=== PATIENT | male | born 1970 | race Caucasian/White ===

== ENCOUNTER 2017-06-08 21:25 | Inpatient (IN) | payer MEDICAID, OTHER ==
[~2017-06-08] VITALS: Ht 182.9 cm; Wt 110.9 kg
[2017-06-08] MEDS ORDERED: SODIUM CHLORIDE 0.9% 2,000 ML IV ONE (21:32)
[2017-06-08] MEDS ORDERED: INSULIN REGULAR, HUMAN 100 UNITS/ML IVP ONE ×2 (21:45→22:30)
[2017-06-08 21:49] LABS: BASOPHILS % (AUTO) 0.1 % (0.0-2.0); EOSINOPHILS % (AUTO) 0.1 % (1.0-6.0); HEMATOCRIT 51.6 % (41-53); HEMOGLOBIN 13.8 g/dL (13.5-17.5); LYMPHOCYTES # (AUTO) 2.4 K/uL (1.0-4.8); LYMPHOCYTES % (AUTO) 11.2 % (22.0-44.0); MEAN CORPUSCULAR HEMOGLOBIN 26.1 pg (26.0-34.0); MEAN CORPUSCULAR HGB CONC 26.7 G/dL (31.0-37.0); MEAN CORPUSCULAR VOLUME 98 fL (80-100); MONOCYTES # (AUTO) 4.2 K/uL (0.1-1.0); MONOCYTES % (AUTO) 19.4 % (2.0-9.0); NEUTROPHILS # (AUTO) 15.1 K/uL (1.8-7.7); NEUTROPHILS % (AUTO) 69.2 % (40.0-70.0); PLATELET COUNT (AUTO) 390 K/uL (150-450); RED BLOOD CELL COUNT(AUTO) 5.28 MIL/uL (4.50-5.90); WHITE BLOOD COUNT (AUTO) 21.8 K/uL (4.5-11.0)
[2017-06-08 22:02] LABS: GLUCOSE,POINT OF CARE > 600 MG/DL (70-110)
[2017-06-08 22:11] LABS: SALICYLATE < 2.8 mg/dL (2.8-20.0)
[2017-06-08] MEDS ORDERED: SODIUM CHLORIDE 0.9% 1,000 ML IV ONE (22:15)
[2017-06-08 22:20] LABS: ALANINE AMINOTRANSFERASE 19 U/L (12-78); ALBUMIN 1.6 g/dL (3.4-5.0); ANION GAP 23 mmol/L (8-16); ASPARTATE AMINOTRANSFERASE 34 U/L (15-37); BILIRUBIN,TOTAL 0.4 mg/dL (0.1-1.0); CARBON DIOXIDE 10 mmol/L (22-29); CHLORIDE 71 mmol/L (98-107); GLOMERULAR FILTR. RATE CALC 25 mL/min (>60); TOTAL PROTEIN, SERUM 5.7 g/dL (6.4-8.2); UREA NITROGEN, BLOOD 41 mg/dL (7-18)
[2017-06-08 22:25] LABS: POTASSIUM 2.7 mmol/L (3.5-5.1); SODIUM SERUM 104 mmol/L (136-145)
[2017-06-08] MEDS ORDERED: SITA25 PO (22:26)
[2017-06-08] MEDS ORDERED: METF500T4 PO (22:26)
[2017-06-08 22:27] LABS: B-TYPE NATRIURETIC PEPTIDE 205 pg/mL (0-100)
[2017-06-08] MEDS ORDERED: DEXTROSE 5%-0.45% SODIUM CHL 1,000 ML IV PRN (22:30)
[2017-06-08] MEDS ORDERED: SODIUM CHLORIDE 0.45% 1,000 ML IV PRN (22:30)
[2017-06-08] MEDS ORDERED: MORPHINE SULFATE 2 MG/ML SYRINGE IVP PRN (22:30)
[2017-06-08] MEDS ORDERED: MAGNESIUM HYDROXIDE SUSPENSION 30 ML UDCUP PO PRN (22:30)
[2017-06-08] MEDS ORDERED: DEXTROSE 50%-WATER 25 GM/50 ML SYRINGE IVP PRN (22:30)
[2017-06-08] MEDS ORDERED: ZOLPIDEM TARTRATE 5 MG TABLET PO PRN (22:30)
[2017-06-08] MEDS ORDERED: ONDANSETRON HCL 4 MG/2 ML VIAL IVP PRN (22:30)
[2017-06-08] MEDS ORDERED: SODIUM CHLORIDE 0.9% 1,000 ML IV SCH (22:30)
[2017-06-08] MEDS ORDERED: POTASSIUM CHLORIDE 40 MEQ in SODIUM CHLORIDE 0.45% 1,000 ML IV PRN (22:30)
[2017-06-08] MEDS ORDERED: BISACODYL 10 MG RECTAL RECTAL SUPPOSITORY PR PRN (22:30)
[2017-06-08] MEDS ORDERED: POTASSIUM CHL 20 MEQ/0.45% NS 1,000 ML IV PRN (22:30)
[2017-06-08 22:38] LABS: RBC MORPHOLOGY COMMENT NORMAL RBC MORPH
[2017-06-08 22:43] LABS: ACETAMINOPHEN < 2 mcg/mL (10-30)
[2017-06-08 22:55] LABS: BASOPHILS # (AUTO) 0.03 K/uL (0.00-0.20); BASOPHILS % (AUTO) 0.2 % (0.0-2.0); EOSINOPHILS # (AUTO) 0.01 K/uL (0.00-0.70); EOSINOPHILS % (AUTO) 0.04 % (1.0-6.0); HEMATOCRIT 46.1 % (41-53); LYMPHOCYTES # (AUTO) 2.1 K/uL (1.0-4.8); MEAN CORPUSCULAR HEMOGLOBIN 25.8 pg (26.0-34.0); MEAN CORPUSCULAR HGB CONC 28.2 G/dL (31.0-37.0); MEAN CORPUSCULAR VOLUME 91 fL (80-100); MONOCYTES # (AUTO) 3.5 K/uL (0.1-1.0); MONOCYTES % (AUTO) 20.6 % (2.0-9.0); NEUTROPHILS # (AUTO) 11.5 K/uL (1.8-7.7); NEUTROPHILS % (AUTO) 67.2 % (40.0-70.0); PLATELET COUNT (AUTO) 358 K/uL (150-450); RED BLOOD CELL COUNT(AUTO) 5.05 MIL/uL (4.50-5.90); RED CELL DISTRIBUTION WIDTH 15.1 % (11.5-14.5); WHITE BLOOD COUNT (AUTO) 17.2 K/uL (4.5-11.0)
[2017-06-08] MEDS ORDERED: POTASSIUM CHLORIDE 40 MEQ in SODIUM CHLORIDE 0.9% 1,000 ML IV ONE (23:00)
[2017-06-08 23:07] LABS: ABG A-A DIFF O2 51.3 mmHg (10-20.0); ABG HCO3 10.8 mmol/L (22.0-26.0); ABG OXYHEMOGLOBIN 92.6 % (94.0-100.0); ABG PCO2 27 mmHg (35-45); TEMPERATURE, FAHRENHEIT, BG 93.6 FAHREN (96.0-98.6)
[2017-06-08 23:08] LABS: ALLEN TEST, BLOOD GAS POS
[2017-06-08 23:09] LABS: CALCIUM, TOTAL 7.6 mg/dL (8.8-10.5); CREATININE 2.71 mg/dL (0.60-1.30)
[2017-06-08] MEDS: INSULIN REGULAR, HUMAN 100 UNITS in SODIUM CHLORIDE 0.9% 99 ML IV PRN ×2 (23:10)
[2017-06-08] MEDS ORDERED: ALBUMIN HUMAN 25%-25GM/100ML 100 ML IV ONE (23:15)
[2017-06-08] MEDS ORDERED: SODIUM CHLORIDE 3% 500 ML IV ONE (23:15)
[2017-06-08] MEDS ORDERED: POTASSIUM CHLORIDE 10% 40 MEQ/30 ML LIQUID UDCUP PO ONE (23:45)
[2017-06-08 23:46] LABS: REFLEX LACTIC ACID? YES YES
[2017-06-08 23:52] LABS: APPEARANCE,URINE CLOUDY (CLEAR); GLUCOSE, URINE (UA) >=1000 mg/dL (NEGATIVE); KETONES,URINE NEGATIVE (NEGATIVE); LEUKOCYTE ESTERASE ,URINE NEGATIVE (NEGATIVE); OCCULT BLOOD,URINE MODERATE (NEGATIVE); PROTEIN,URINE NEGATIVE (NEGATIVE)
[2017-06-08 23:55] LABS: ADD UA MICROSCOPIC YES
[2017-06-09 00:11] LABS: PHOSPHORUS 1.6 mg/dL (2.5-4.9)
[2017-06-09 00:14] LABS: SQUAMOUS EPITHELIAL CELL,UR Rare /LPF (None Seen); WBC,URINE 0-2 /HPF (0-5)
[2017-06-09 00:15] LABS: AMORPHOUS SEDIMENT,UR Few /LPF (None Seen)
[2017-06-09] MEDS: HEPARIN SODIUM,PORCINE 5,000 UNITS/ML VIAL SQ SCH ×3 (00:53→15:46)
[2017-06-09 01:16] LABS: CALCIUM, TOTAL 7.9 mg/dL (8.8-10.5); CREATININE 2.55 mg/dL (0.60-1.30)
[2017-06-09 01:30] LABS: POTASSIUM 2.2 mmol/L (3.5-5.1)
[2017-06-09] MEDS ORDERED: POTASSIUM CHLORIDE 10% 40 MEQ/30 ML LIQUID UDCUP PO ONE (01:45)
[2017-06-09] MEDS ORDERED: POTASSIUM PHOS,M-BASIC-D-BASIC 20 MEQ in DEXTROSE 5%-WATER 100 ML IV ONE ×3 (01:45→05:30)
[2017-06-09] MEDS ORDERED: CALCIUM GLUCONATE 100 MG/ML 10 ML IVP ONE ×3 (01:45→22:30)
[2017-06-09] MEDS ORDERED: POTASSIUM CHLORIDE 40 MEQ in SODIUM CHLORIDE 0.9% 1,000 ML IV ONE (01:45)
[2017-06-09] MEDS ORDERED: CALCIUM GLUCONATE 0.465 MEQ/ML 10 ML VIAL IVP ONE (01:45)
[2017-06-09] MEDS ORDERED: SODIUM CHLORIDE 0.9% 50 ML ONE (02:09)
[2017-06-09] MEDS ORDERED: PIPERACILLIN/TAZO 3.375 GM/D5W 50 ML IV ONE (02:15)
[2017-06-09] MEDS ORDERED: VANCOMYCIN HCL 1 GM/D5% WATER 200 ML IV ONE ×2 (02:15→08:00)
[2017-06-09] MEDS ORDERED: SODIUM CHLORIDE 0.9% 500 ML IV ONE ×2 (03:17→07:00)
[2017-06-09 04:00] VITALS: BP 73/45
[2017-06-09] MEDS ORDERED: INSULIN REGULAR, HUMAN 100 UNITS/ML IVP ONE (04:00)
[2017-06-09] MEDS: INSULIN REGULAR, HUMAN 100 UNITS in SODIUM CHLORIDE 0.9% 99 ML IV PRN ×12 (04:00→16:10)
[2017-06-09] MEDS ORDERED: INSULIN REGULAR, HUMAN 100 UNITS/ML IVP PRN (04:15)
[2017-06-09 04:43] LABS: ALBUMIN 1.8 g/dL (3.4-5.0); BILIRUBIN,TOTAL 0.4 mg/dL (0.1-1.0); CREATININE 2.56 mg/dL (0.60-1.30); MAGNESIUM 2.4 mg/dL (1.80-2.40); PHOSPHORUS 1.6 mg/dL (2.5-4.9); TOTAL PROTEIN, SERUM 5.4 g/dL (6.4-8.2)
[2017-06-09 04:58] LABS: POTASSIUM 2.9 mmol/L (3.5-5.1)
[2017-06-09 05:12] LABS: GLUCOSE COMMENT 1 Received Meds; GLUCOSE,POINT OF CARE > 600 MG/DL (70-110)
[2017-06-09] MEDS ORDERED: POTASSIUM CHLORIDE 20 MEQ ER TABLET PO PRN ×2 (05:45)
[2017-06-09] MEDS ORDERED: POTASSIUM PHOS M BASIC D BASIC IV ONE ×3 (06:00→11:10)
[2017-06-09] MEDS ORDERED: WATER IV ONE (06:00)
[2017-06-09] MEDS ORDERED: DEXTROSE 5% IV ONE (06:00)
[2017-06-09] MEDS: INSULIN REGULAR, HUMAN 100 UNITS/ML IVP PRN ×7 (06:24→18:10)
[2017-06-09] MEDS ORDERED: HALOPERIDOL LACTATE 5 MG/ML VIAL IVP ONE (06:45)
[2017-06-09] MEDS ORDERED: SODIUM CHLORIDE 0.9% 1,000 ML IV ONE ×2 (06:45→13:45)
[2017-06-09] MEDS ORDERED: AMIODARONE HCL 150 MG in DEXTROSE 5%-WATER 97 ML IV ONE (06:50)
[2017-06-09 06:52] LABS: GLUCOSE COMMENT 1 Received Meds; GLUCOSE,POINT OF CARE > 600 MG/DL (70-110)
[2017-06-09 06:52] LABS: GLUCOSE COMMENT 1 Received Meds; GLUCOSE,POINT OF CARE > 600 MG/DL (70-110)
[2017-06-09] MEDS ORDERED: AMIODARONE HCL 360 MG in DEXTROSE 5%-WATER 242.8 ML IV ONE (07:00)
[2017-06-09] MEDS ORDERED: VANCOMYCIN HCL 1 GM/D5% WATER 200 ML IV PRN (07:15)
[2017-06-09 08:00] VITALS: BP 114/60
[2017-06-09] MEDS: DOCUSATE SODIUM 100 MG CAPSULE PO SCH ×2 (09:00→22:33)
[2017-06-09] MEDS: PANTOPRAZOLE SODIUM 40 MG DR TABLET PO SCH (09:00)
[2017-06-09] MEDS: POTASSIUM CHL 10 MEQ/WATER 50 ML IV PRN ×2 (09:22→10:16)
[2017-06-09 09:41] LABS: CREATININE 1.4 mg/dL (0.60-1.30); MAGNESIUM 1.2 mg/dL (1.80-2.40)
[2017-06-09 10:07] LABS: POTASSIUM 2.7 mmol/L (3.5-5.1)
[2017-06-09 10:08] LABS: PHOSPHORUS 1.4 mg/dL (2.5-4.9)
[2017-06-09] MEDS ORDERED: POTASSIUM PHOS,M-BASIC-D-BASIC 30 MEQ in DEXTROSE 5%-WATER 150 ML IV ONE (10:45)
[2017-06-09] MEDS ORDERED: MAGNESIUM SULFATE 3 GM in SODIUM CHLORIDE 0.9% 100 ML IV ONE (10:45)
[2017-06-09] MEDS ORDERED: SODIUM CHLORIDE 0.9% IV ONE ×2 (11:07→11:10)
[2017-06-09] MEDS ORDERED: PHENYLEPHRINE 200 MG/D5%-WATER 250 ML IV ONE (11:28)
[2017-06-09 11:32] LABS: ABG A-A DIFF O2 591.2 mmHg (10-20.0); ABG BASE EXCESS -16.2 mmol/L (-2.0-3.0); ABG OXYHEMOGLOBIN 94.9 % (94.0-100.0); ABG PCO2 37 mmHg (35-45); TEMPERATURE, FAHRENHEIT, BG 99.1 FAHREN (96.0-98.6)
[2017-06-09 11:33] LABS: ABG PH 7.151 (7.35-7.450); ALLEN TEST, BLOOD GAS Positive
[2017-06-09] MEDS ORDERED: RAPID SEQUENCE KIT [RSI] 1 EACH KIT ONE ×2 (11:40)
[2017-06-09] MEDS ORDERED: SODIUM BICARBONATE [ADULT] 8.4% 50 MEQ/50 ML SYRINGE IVP ONE ×3 (11:40→22:30)
[2017-06-09] MEDS ORDERED: SUCCINYLCHOLINE CHLORIDE 20 MG/ML 10 ML VIAL ONE (11:41)
[2017-06-09] MEDS ORDERED: ETOMIDATE 2 MG/ML 10 ML VIAL IVP ONE (11:45)
[2017-06-09] MEDS ORDERED: SUCCINYLCHOLINE CHLORIDE 20 MG/ML 10 ML VIAL IVP ONE (11:45)
[2017-06-09] MEDS: POTASSIUM CHL 10 MEQ/WATER 50 ML IV SCH ×3 (11:59→14:37)
[2017-06-09 12:00] VITALS: BP 82/34
[2017-06-09] MEDS ORDERED: AMIODARONE HCL 540 MG in DEXTROSE 5%-WATER 239.2 ML IV ONE (13:00)
[2017-06-09] MEDS ORDERED: DIGOXIN 250 MCG/ML 2 ML AMP IVP ONE (13:45)
[2017-06-09] MEDS: PIPERACILLIN/TAZO 3.375 GM/D5W 50 ML IV SCH ×3 (14:38→22:34)
[2017-06-09] MEDS: ACETAMINOPHEN 325 MG TABLET PO PRN (15:38)
[2017-06-09 16:00] VITALS: BP 98/37
[2017-06-09] MEDS: NOREPINEPHRINE 4 MG/D5%-WATER 250 ML IV PRN ×2 (16:41→22:36)
[2017-06-09 16:46] LABS: ANION GAP 13 mmol/L (8-16); CARBON DIOXIDE 12 mmol/L (22-29); CHLORIDE 113 mmol/L (98-107); CREATININE 1.42 mg/dL (0.60-1.30); GLOMERULAR FILTR. RATE CALC 54 mL/min (>60); PHOSPHORUS 2.7 mg/dL (2.5-4.9); POTASSIUM 4.7 mmol/L (3.5-5.1); SODIUM SERUM 138 mmol/L (136-145); UREA NITROGEN, BLOOD 31 mg/dL (7-18)
[2017-06-09 16:57] LABS: CALCIUM, TOTAL < 5.0 mg/dL (8.8-10.5)
[2017-06-09] MEDS ORDERED: ETOMIDATE 2 MG/ML 10 ML VIAL IV ONE (17:30)
[2017-06-09] MEDS ORDERED: SUCCINYLCHOLINE CHLORIDE 20 MG/ML 10 ML VIAL IM ONE (17:30)
[2017-06-09 18:42] LABS: GLUCOSE COMMENT 1 Received Meds; GLUCOSE,POINT OF CARE 547 MG/DL (70-110)
[2017-06-09 18:42] LABS: GLUCOSE COMMENT 1 Received Meds; GLUCOSE,POINT OF CARE > 600 MG/DL (70-110)
[2017-06-09 18:42] LABS: GLUCOSE COMMENT 1 Received Meds; GLUCOSE,POINT OF CARE > 600 MG/DL (70-110)
[2017-06-09 18:42] LABS: GLUCOSE COMMENT 1 Received Meds; GLUCOSE,POINT OF CARE > 600 MG/DL (70-110)
[2017-06-09 18:42] LABS: GLUCOSE,POINT OF CARE 546 MG/DL (70-110)
[2017-06-09 18:42] LABS: GLUCOSE COMMENT 1 Received Meds; GLUCOSE,POINT OF CARE > 600 MG/DL (70-110)
[2017-06-09 18:42] LABS: GLUCOSE,POINT OF CARE 459 MG/DL (70-110)
[2017-06-09 18:42] LABS: GLUCOSE,POINT OF CARE > 600 MG/DL (70-110)
[2017-06-09 20:00] VITALS: BP 99/37
[2017-06-09] MEDS: ALBUMIN HUMAN 25%-25GM/100ML 100 ML IV SCH (20:06)
[2017-06-09 20:07] LABS: ABG A-A DIFF O2 395.2 mmHg (10-20.0); ABG BASE EXCESS -17.7 mmol/L (-2.0-3.0); ABG HCO3 11.9 mmol/L (22.0-26.0); ABG OXYHEMOGLOBIN 98.7 % (94.0-100.0); ABG PCO2 42 mmHg (35-45)
[2017-06-09 20:08] LABS: ABG PH 7.079 (7.35-7.450)
[2017-06-09] MEDS: SODIUM CHLORIDE 0.9% 1,000 ML IV SCH ×2 (20:09→21:15)
[2017-06-09] MEDS: VANCOMYCIN HCL IV SCH (20:09)
[2017-06-09] MEDS: SODIUM CHLORIDE 0.9% IV SCH (20:09)
[2017-06-09 21:58] LABS: CALCIUM, TOTAL 8.1 mg/dL (8.8-10.5); CREATININE 2.59 mg/dL (0.60-1.30); MAGNESIUM 2.5 mg/dL (1.80-2.40); PHOSPHORUS 3.5 mg/dL (2.5-4.9)
[2017-06-09 22:00] LABS: POTASSIUM 8.1 mmol/L (3.5-5.1)
[2017-06-09] MEDS ORDERED: SODIUM POLYSTYRENE SULFONATE 15 GM/60 ML SUSPENSION BOTTLE PO ONE (22:30)
[2017-06-09] MEDS ORDERED: ALBUTEROL SULFATE 2.5 MG/0.5 ML NEB SOLUTION NEB ONE (22:30)
[2017-06-09] MEDS ORDERED: 0.9% SODIUM CHLORIDE 5 ML NEB SOLUTION NEB ONE (22:58)
[2017-06-09] MEDS: SODIUM BICARBONATE 150 MEQ in SODIUM CHLORIDE 0.45% 1,000 ML IV SCH (23:20)
[2017-06-09] MEDS: PROPOFOL 1000 MG/ISO-OSM 100 ML IV PRN (23:21)
[2017-06-10] VITALS: BP 101/67
[2017-06-10] MEDS: HEPARIN SODIUM,PORCINE 5,000 UNITS/ML VIAL SQ SCH ×4 (01:31→23:17)
[2017-06-10] MEDS: PHENYLEPHRINE 200 MG/D5%-WATER 250 ML IV PRN (01:32)
[2017-06-10 02:25] LABS: CALCIUM, TOTAL 7.8 mg/dL (8.8-10.5); CREATININE 2.55 mg/dL (0.60-1.30)
[2017-06-10] MEDS ORDERED: CALCIUM GLUCONATE 100 MG/ML 10 ML IVP ONE ×2 (02:30→08:00)
[2017-06-10] MEDS ORDERED: SODIUM POLYSTYRENE SULFONATE 15 GM/60 ML SUSPENSION BOTTLE PO ONE ×2 (02:30→08:00)
[2017-06-10] MEDS: ALBUMIN HUMAN 25%-25GM/100ML 100 ML IV SCH ×3 (02:36→18:07)
[2017-06-10 02:57] LABS: GLUCOSE COMMENT 1 Received Meds; GLUCOSE,POINT OF CARE 155 MG/DL (70-110)
[2017-06-10 02:57] LABS: GLUCOSE COMMENT 1 Received Meds; GLUCOSE,POINT OF CARE 314 MG/DL (70-110)
[2017-06-10 02:57] LABS: GLUCOSE COMMENT 1 Received Meds; GLUCOSE,POINT OF CARE 148 MG/DL (70-110)
[2017-06-10 02:57] LABS: GLUCOSE COMMENT 1 Received Meds; GLUCOSE,POINT OF CARE 182 MG/DL (70-110)
[2017-06-10 02:57] LABS: GLUCOSE COMMENT 1 Received Meds; GLUCOSE,POINT OF CARE 199 MG/DL (70-110)
[2017-06-10 02:57] LABS: GLUCOSE COMMENT 1 Received Meds; GLUCOSE,POINT OF CARE 259 MG/DL (70-110)
[2017-06-10 02:57] LABS: GLUCOSE COMMENT 1 Received Meds; GLUCOSE,POINT OF CARE 144 MG/DL (70-110)
[2017-06-10 02:57] LABS: GLUCOSE,POINT OF CARE 315 MG/DL (70-110)
[2017-06-10 02:57] LABS: GLUCOSE COMMENT 1 Received Meds; GLUCOSE,POINT OF CARE 115 MG/DL (70-110)
[2017-06-10 02:57] LABS: GLUCOSE COMMENT 1 Received Meds; GLUCOSE,POINT OF CARE 231 MG/DL (70-110)
[2017-06-10 02:57] LABS: GLUCOSE COMMENT 1 Received Meds; GLUCOSE,POINT OF CARE 150 MG/DL (70-110)
[2017-06-10] MEDS: PIPERACILLIN/TAZO 3.375 GM/D5W 50 ML IV SCH ×4 (03:51→21:34)
[2017-06-10] MEDS: NOREPINEPHRINE 4 MG/D5%-WATER 250 ML IV PRN (03:52)
[2017-06-10] MEDS: PROPOFOL 1000 MG/ISO-OSM 100 ML IV PRN ×7 (03:53→23:46)
[2017-06-10 04:00] VITALS: BP 105/60
[2017-06-10] MEDS: SODIUM BICARBONATE 150 MEQ in SODIUM CHLORIDE 0.45% 1,000 ML IV SCH ×3 (06:19→20:35)
[2017-06-10 06:22] LABS: BASOPHILS % (AUTO) 0.1 % (0.0-2.0); EOSINOPHILS % (AUTO) 0.3 % (1.0-6.0); HEMATOCRIT 33.2 % (41-53); HEMOGLOBIN 11.3 g/dL (13.5-17.5); LYMPHOCYTES # (AUTO) 2.6 K/uL (1.0-4.8); MEAN CORPUSCULAR HEMOGLOBIN 26.7 pg (26.0-34.0); MEAN CORPUSCULAR HGB CONC 34.1 G/dL (31.0-37.0); MEAN CORPUSCULAR VOLUME 78 fL (80-100); MONOCYTES # (AUTO) 0.2 K/uL (0.1-1.0); MONOCYTES % (AUTO) 0.6 % (2.0-9.0); NEUTROPHILS # (AUTO) 22.9 K/uL (1.8-7.7); PLATELET COUNT (AUTO) 246 K/uL (150-450); RED BLOOD CELL COUNT(AUTO) 4.25 MIL/uL (4.50-5.90); RED CELL DISTRIBUTION WIDTH 14.8 % (11.5-14.5); WHITE BLOOD COUNT (AUTO) 25.8 K/uL (4.5-11.0)
[2017-06-10 07:03] LABS: RBC MORPHOLOGY COMMENT NORMAL RBC MORPH
[2017-06-10 07:07] LABS: GLUCOSE COMMENT 1 Received Meds; GLUCOSE,POINT OF CARE 186 MG/DL (70-110)
[2017-06-10 07:07] LABS: GLUCOSE COMMENT 1 Received Meds; GLUCOSE,POINT OF CARE 178 MG/DL (70-110)
[2017-06-10 07:16] LABS: CALCIUM, TOTAL 7.9 mg/dL (8.8-10.5); CREATININE 2.46 mg/dL (0.60-1.30); MAGNESIUM 2.3 mg/dL (1.80-2.40); PHOSPHORUS 3.1 mg/dL (2.5-4.9)
[2017-06-10 07:27] LABS: POTASSIUM 6.1 mmol/L (3.5-5.1)
[2017-06-10 08:00] VITALS: BP 105/67
[2017-06-10] MEDS: AMIODARONE HCL 750 MG in DEXTROSE 5%-WATER 485 ML IV SCH (08:22)
[2017-06-10] MEDS ORDERED: INSULIN REGULAR, HUMAN 100 UNITS in SODIUM CHLORIDE 0.9% 99 ML IV SCH ×6 (08:45→09:44)
[2017-06-10] MEDS: VANCOMYCIN HCL IV SCH (08:49)
[2017-06-10] MEDS: PANTOPRAZOLE SODIUM 40 MG DR TABLET PO SCH (08:49)
[2017-06-10] MEDS: SODIUM CHLORIDE 0.9% IV SCH (08:49)
[2017-06-10] MEDS: DOCUSATE SODIUM 100 MG CAPSULE PO SCH ×2 (08:49→20:36)
[2017-06-10] MEDS: INSULIN REGULAR, HUMAN 100 UNITS in SODIUM CHLORIDE 0.9% 99 ML IV SCH ×4 (09:00→21:34)
[2017-06-10 11:41] LABS: CREATININE 2.34 mg/dL (0.60-1.30); MAGNESIUM 2.3 mg/dL (1.80-2.40); POTASSIUM 5.2 mmol/L (3.5-5.1)
[2017-06-10 12:00] VITALS: BP 111/54
[2017-06-10 15:06] LABS: CALCIUM, TOTAL 7.7 mg/dL (8.8-10.5); CREATININE 2.33 mg/dL (0.60-1.30); POTASSIUM 5.3 mmol/L (3.5-5.1)
[2017-06-10 16:00] VITALS: BP 94/62
[2017-06-10 16:42] LABS: PROCALCITONIN (PCT) 33.28 ng/mL (<0.50)
[2017-06-10] MEDS: ACETAMINOPHEN 325 MG TABLET PO PRN ×2 (17:20→21:33)
[2017-06-10 19:01] LABS: CALCIUM, TOTAL 7.7 mg/dL (8.8-10.5); CREATININE 2.33 mg/dL (0.60-1.30); POTASSIUM 5.5 mmol/L (3.5-5.1)
[2017-06-10 20:00] VITALS: BP 106/54
[2017-06-10 22:30] LABS: CALCIUM, TOTAL 7.4 mg/dL (8.8-10.5); CREATININE 2.45 mg/dL (0.60-1.30); POTASSIUM 5.4 mmol/L (3.5-5.1)
[2017-06-11] VITALS: BP 106/45
[2017-06-11] MEDS: PROPOFOL 1000 MG/ISO-OSM 100 ML IV PRN ×7 (02:45→23:05)
[2017-06-11 03:04] LABS: CALCIUM, TOTAL 7.2 mg/dL (8.8-10.5); CREATININE 2.35 mg/dL (0.60-1.30)
[2017-06-11] MEDS: ALBUMIN HUMAN 25%-25GM/100ML 100 ML IV SCH ×3 (03:11→18:52)
[2017-06-11] MEDS: PIPERACILLIN/TAZO 3.375 GM/D5W 50 ML IV SCH ×4 (03:11→20:52)
[2017-06-11 04:00] VITALS: BP 101/56
[2017-06-11] MEDS: SODIUM BICARBONATE 150 MEQ in SODIUM CHLORIDE 0.45% 1,000 ML IV SCH (05:02)
[2017-06-11 06:53] LABS: GLUCOSE COMMENT 1 Received Meds; GLUCOSE,POINT OF CARE 107 MG/DL (70-110)
[2017-06-11 06:53] LABS: GLUCOSE COMMENT 1 Received Meds; GLUCOSE,POINT OF CARE 122 MG/DL (70-110)
[2017-06-11 06:53] LABS: GLUCOSE COMMENT 1 Received Meds; GLUCOSE,POINT OF CARE 155 MG/DL (70-110)
[2017-06-11 06:53] LABS: GLUCOSE COMMENT 1 Received Meds; GLUCOSE,POINT OF CARE 121 MG/DL (70-110)
[2017-06-11 06:53] LABS: GLUCOSE,POINT OF CARE 111 MG/DL (70-110)
[2017-06-11 06:53] LABS: GLUCOSE COMMENT 1 Received Meds; GLUCOSE,POINT OF CARE 131 MG/DL (70-110)
[2017-06-11 06:53] LABS: GLUCOSE COMMENT 1 Received Meds; GLUCOSE,POINT OF CARE 152 MG/DL (70-110)
[2017-06-11 06:53] LABS: GLUCOSE COMMENT 1 Received Meds; GLUCOSE,POINT OF CARE 103 MG/DL (70-110)
[2017-06-11 06:53] LABS: GLUCOSE COMMENT 1 Received Meds; GLUCOSE,POINT OF CARE 139 MG/DL (70-110)
[2017-06-11 06:53] LABS: GLUCOSE COMMENT 1 Received Meds; GLUCOSE,POINT OF CARE 122 MG/DL (70-110)
[2017-06-11 06:53] LABS: GLUCOSE,POINT OF CARE 144 MG/DL (70-110)
[2017-06-11 06:53] LABS: GLUCOSE COMMENT 1 Received Meds; GLUCOSE,POINT OF CARE 133 MG/DL (70-110)
[2017-06-11 06:53] LABS: GLUCOSE COMMENT 1 Received Meds; GLUCOSE,POINT OF CARE 144 MG/DL (70-110)
[2017-06-11 06:53] LABS: GLUCOSE COMMENT 1 Received Meds; GLUCOSE,POINT OF CARE 149 MG/DL (70-110)
[2017-06-11 06:53] LABS: GLUCOSE COMMENT 1 Received Meds; GLUCOSE,POINT OF CARE 115 MG/DL (70-110)
[2017-06-11 06:53] LABS: GLUCOSE COMMENT 1 Received Meds; GLUCOSE,POINT OF CARE 169 MG/DL (70-110)
[2017-06-11 06:53] LABS: GLUCOSE COMMENT 1 Received Meds; GLUCOSE,POINT OF CARE 139 MG/DL (70-110)
[2017-06-11 06:54] LABS: GLUCOSE COMMENT 1 Received Meds; GLUCOSE,POINT OF CARE 143 MG/DL (70-110)
[2017-06-11 06:54] LABS: GLUCOSE COMMENT 1 Received Meds; GLUCOSE,POINT OF CARE 155 MG/DL (70-110)
[2017-06-11 06:54] LABS: GLUCOSE COMMENT 1 Received Meds; GLUCOSE,POINT OF CARE 134 MG/DL (70-110)
[2017-06-11 06:54] LABS: GLUCOSE COMMENT 1 Received Meds; GLUCOSE,POINT OF CARE 167 MG/DL (70-110)
[2017-06-11 06:54] LABS: GLUCOSE COMMENT 1 Received Meds; GLUCOSE,POINT OF CARE 139 MG/DL (70-110)
[2017-06-11 06:58] LABS: GLUCOSE COMMENT 1 Received Meds; GLUCOSE,POINT OF CARE 155 MG/DL (70-110)
[2017-06-11 07:16] LABS: CALCIUM, TOTAL 7.2 mg/dL (8.8-10.5); CREATININE 2.24 mg/dL (0.60-1.30); MAGNESIUM 2.2 mg/dL (1.80-2.40); PHOSPHORUS 2.9 mg/dL (2.5-4.9); POTASSIUM 4.7 mmol/L (3.5-5.1)
[2017-06-11 07:31] LABS: EOSINOPHILS % (AUTO) 0.3 % (1.0-6.0); HEMATOCRIT 27.5 % (41-53); HEMOGLOBIN 9.7 g/dL (13.5-17.5); LYMPHOCYTES # (AUTO) 1.1 K/uL (1.0-4.8); LYMPHOCYTES % (AUTO) 6.7 % (22.0-44.0); MEAN CORPUSCULAR HEMOGLOBIN 27.5 pg (26.0-34.0); MEAN CORPUSCULAR HGB CONC 35.2 G/dL (31.0-37.0); MEAN CORPUSCULAR VOLUME 78 fL (80-100); MONOCYTES # (AUTO) 0.3 K/uL (0.1-1.0); MONOCYTES % (AUTO) 1.8 % (2.0-9.0); NEUTROPHILS # (AUTO) 14.4 K/uL (1.8-7.7); PLATELET COUNT (AUTO) 173 K/uL (150-450); RED BLOOD CELL COUNT(AUTO) 3.52 MIL/uL (4.50-5.90); RED CELL DISTRIBUTION WIDTH 15.5 % (11.5-14.5); WHITE BLOOD COUNT (AUTO) 15.8 K/uL (4.5-11.0)
[2017-06-11 07:39] LABS: NEUTROPHILS % (AUTO) 91.2 % (40.0-70.0)
[2017-06-11 08:00] VITALS: BP 102/53
[2017-06-11] MEDS: AMIODARONE HCL 750 MG in DEXTROSE 5%-WATER 485 ML IV SCH (08:15)
[2017-06-11] MEDS: HEPARIN SODIUM,PORCINE 5,000 UNITS/ML VIAL SQ SCH ×3 (08:16→23:04)
[2017-06-11] MEDS: DOCUSATE SODIUM 100 MG CAPSULE PO SCH ×2 (08:16→20:53)
[2017-06-11] MEDS: PANTOPRAZOLE SODIUM 40 MG DR TABLET PO SCH (08:16)
[2017-06-11] MEDS: VANCOMYCIN HCL 1 GM/D5% WATER 200 ML IV SCH (08:16)
[2017-06-11] MEDS: SODIUM CHLORIDE 0.45% 1,000 ML IV SCH ×2 (08:17→17:31)
[2017-06-11 09:10] LABS: ABG A-A DIFF O2 118.7 mmHg (10-20.0); ABG BASE EXCESS 1.5 mmol/L (-2.0-3.0); ABG HCO3 26.1 mmol/L (22.0-26.0); ABG OXYHEMOGLOBIN 97.1 % (94.0-100.0); ABG PCO2 33 mmHg (35-45); TEMPERATURE, FAHRENHEIT, BG 100.1 FAHREN (96.0-98.6)
[2017-06-11 09:11] LABS: ALLEN TEST, BLOOD GAS Positive
[2017-06-11 10:29] LABS: CALCIUM, TOTAL 7.1 mg/dL (8.8-10.5); CREATININE 2.19 mg/dL (0.60-1.30); POTASSIUM 4.3 mmol/L (3.5-5.1)
[2017-06-11 12:00] VITALS: BP 101/55
[2017-06-11] MEDS: PHENYLEPHRINE 200 MG/D5%-WATER 250 ML IV PRN (13:11)
[2017-06-11 15:20] LABS: CALCIUM, TOTAL 7.4 mg/dL (8.8-10.5); CREATININE 2.09 mg/dL (0.60-1.30); POTASSIUM 4.2 mmol/L (3.5-5.1)
[2017-06-11] MEDS: METOCLOPRAMIDE HCL 5 MG/ML 2 ML VIAL IVP SCH ×2 (15:55→23:04)
[2017-06-11 16:00] VITALS: BP 98/54
[2017-06-11] MEDS: ACETAMINOPHEN 325 MG TABLET PO PRN (17:31)
[2017-06-11 19:21] LABS: CALCIUM, TOTAL 7.2 mg/dL (8.8-10.5); CREATININE 2.06 mg/dL (0.60-1.30); POTASSIUM 4.1 mmol/L (3.5-5.1)
[2017-06-11] MEDS: INSULIN REGULAR, HUMAN 100 UNITS in SODIUM CHLORIDE 0.9% 99 ML IV SCH ×2 (19:53)
[2017-06-11 20:00] VITALS: BP 98/54
[2017-06-12] VITALS: BP 89/51
[2017-06-12] MEDS: CLINDAMYCIN 900 MG/D5% WATER 50 ML IV SCH ×3 (02:03→16:41)
[2017-06-12] MEDS: ALBUMIN HUMAN 25%-25GM/100ML 100 ML IV SCH ×3 (02:04→18:23)
[2017-06-12 03:23] LABS: GLUCOSE,POINT OF CARE 195 MG/DL (70-110)
[2017-06-12 03:23] LABS: GLUCOSE COMMENT 1 Received Meds; GLUCOSE,POINT OF CARE 149 MG/DL (70-110)
[2017-06-12 03:23] LABS: GLUCOSE COMMENT 1 Received Meds; GLUCOSE,POINT OF CARE 166 MG/DL (70-110)
[2017-06-12 03:23] LABS: GLUCOSE,POINT OF CARE 197 MG/DL (70-110)
[2017-06-12 03:23] LABS: GLUCOSE COMMENT 1 Received Meds; GLUCOSE,POINT OF CARE 150 MG/DL (70-110)
[2017-06-12 03:23] LABS: GLUCOSE COMMENT 1 Received Meds; GLUCOSE,POINT OF CARE 192 MG/DL (70-110)
[2017-06-12 03:23] LABS: GLUCOSE,POINT OF CARE 136 MG/DL (70-110)
[2017-06-12 03:23] LABS: GLUCOSE,POINT OF CARE 127 MG/DL (70-110)
[2017-06-12 03:23] LABS: GLUCOSE COMMENT 1 Received Meds; GLUCOSE,POINT OF CARE 165 MG/DL (70-110)
[2017-06-12 03:23] LABS: GLUCOSE COMMENT 1 Received Meds; GLUCOSE,POINT OF CARE 163 MG/DL (70-110)
[2017-06-12 03:23] LABS: GLUCOSE COMMENT 1 Received Meds; GLUCOSE,POINT OF CARE 166 MG/DL (70-110)
[2017-06-12 03:23] LABS: GLUCOSE,POINT OF CARE 147 MG/DL (70-110)
[2017-06-12 03:23] LABS: GLUCOSE COMMENT 1 Received Meds; GLUCOSE,POINT OF CARE 170 MG/DL (70-110)
[2017-06-12 03:23] LABS: GLUCOSE COMMENT 1 Received Meds; GLUCOSE,POINT OF CARE 182 MG/DL (70-110)
[2017-06-12 04:00] VITALS: BP 115/75
[2017-06-12] MEDS: PIPERACILLIN/TAZO 3.375 GM/D5W 50 ML IV SCH ×4 (04:16→21:00)
[2017-06-12] MEDS: SODIUM CHLORIDE 0.45% 1,000 ML IV SCH ×2 (04:17→23:45)
[2017-06-12] MEDS: PROPOFOL 1000 MG/ISO-OSM 100 ML IV PRN ×6 (05:22→23:44)
[2017-06-12 05:26] LABS: BASOPHILS % (AUTO) 0.1 % (0.0-2.0); EOSINOPHILS % (AUTO) 0.5 % (1.0-6.0); HEMATOCRIT 25.5 % (41-53); HEMOGLOBIN 8.8 g/dL (13.5-17.5); LYMPHOCYTES # (AUTO) 1.1 K/uL (1.0-4.8); LYMPHOCYTES % (AUTO) 10.7 % (22.0-44.0); MEAN CORPUSCULAR HEMOGLOBIN 26.9 pg (26.0-34.0); MEAN CORPUSCULAR HGB CONC 34.8 G/dL (31.0-37.0); MEAN CORPUSCULAR VOLUME 77 fL (80-100); MONOCYTES # (AUTO) 0.1 K/uL (0.1-1.0); MONOCYTES % (AUTO) 0.6 % (2.0-9.0); NEUTROPHILS # (AUTO) 9.1 K/uL (1.8-7.7); PLATELET COUNT (AUTO) 144 K/uL (150-450); RED BLOOD CELL COUNT(AUTO) 3.29 MIL/uL (4.50-5.90); RED CELL DISTRIBUTION WIDTH 15.3 % (11.5-14.5); WHITE BLOOD COUNT (AUTO) 10.3 K/uL (4.5-11.0)
[2017-06-12 05:32] LABS: NEUTROPHILS % (AUTO) 88.1 % (40.0-70.0)
[2017-06-12 05:41] LABS: ANION GAP 9 mmol/L (8-16); CALCIUM, TOTAL 7.3 mg/dL (8.8-10.5); CARBON DIOXIDE 27 mmol/L (22-29); CHLORIDE 103 mmol/L (98-107); CREATINE KINASE MB 0.6 ng/mL (0-5); CREATINE KINASE, TOTAL 642 U/L (39-308); CREATININE 2.02 mg/dL (0.60-1.30); GLOMERULAR FILTR. RATE CALC 36 mL/min (>60); PHOSPHORUS 2.9 mg/dL (2.5-4.9); POTASSIUM 3.4 mmol/L (3.5-5.1); SODIUM SERUM 139 mmol/L (136-145); UREA NITROGEN, BLOOD 47 mg/dL (7-18)
[2017-06-12 06:44] LABS: PROCALCITONIN (PCT) 19.68 ng/mL (<0.50)
[2017-06-12 06:47] LABS: GLUCOSE,POINT OF CARE 89 MG/DL (70-110)
[2017-06-12 06:47] LABS: GLUCOSE,POINT OF CARE 89 MG/DL (70-110)
[2017-06-12 06:47] LABS: GLUCOSE,POINT OF CARE 106 MG/DL (70-110)
[2017-06-12 08:00] VITALS: BP 99/51
[2017-06-12] MEDS ORDERED: DEXTROSE 50%-WATER 25 GM/50 ML SYRINGE IVP PRN (08:15)
[2017-06-12] MEDS ORDERED: POTASSIUM CHL 10 MEQ/WATER 50 ML IV ONE (08:15)
[2017-06-12] MEDS: AMIODARONE HCL 750 MG in DEXTROSE 5%-WATER 485 ML IV SCH (08:39)
[2017-06-12] MEDS: PANTOPRAZOLE SODIUM 40 MG DR TABLET PO SCH (08:40)
[2017-06-12] MEDS: METOCLOPRAMIDE HCL 5 MG/ML 2 ML VIAL IVP SCH (08:40)
[2017-06-12] MEDS: VANCOMYCIN HCL 1 GM/D5% WATER 200 ML IV SCH (08:40)
[2017-06-12] MEDS: HEPARIN SODIUM,PORCINE 5,000 UNITS/ML VIAL SQ SCH ×2 (08:40→16:39)
[2017-06-12] MEDS ORDERED: SODIUM CHLORIDE 0.9% 500 ML IV ONE (08:47)
[2017-06-12] MEDS: DOCUSATE SODIUM 100 MG CAPSULE PO SCH ×2 (09:00→20:06)
[2017-06-12 09:39] LABS: RBC MORPHOLOGY COMMENT ABNORMAL RBC MORPH
[2017-06-12 12:00] VITALS: BP 100/54
[2017-06-12] MEDS: INSULIN REGULAR, HUMAN 100 UNITS/ML SQ PRN ×3 (12:00→21:01)
[2017-06-12 13:27] LABS: GLUCOSE,POINT OF CARE 108 MG/DL (70-110)
[2017-06-12 13:27] LABS: GLUCOSE COMMENT 1 Received Meds; GLUCOSE,POINT OF CARE 186 MG/DL (70-110)
[2017-06-12 16:00] VITALS: BP 154/69
[2017-06-12] MEDS: AMIODARONE HCL 200 MG TABLET PO SCH ×2 (16:40→21:00)
[2017-06-12 18:23] LABS: GLUCOSE COMMENT 1 Received Meds; GLUCOSE,POINT OF CARE 240 MG/DL (70-110)
[2017-06-12 20:00] VITALS: BP 101/53
[2017-06-13] VITALS (8 sets, daily range): BP systolic 96–124; BP diastolic 49–66
[2017-06-13] MEDS: CLINDAMYCIN 900 MG/D5% WATER 50 ML IV SCH ×3 (01:26→17:39)
[2017-06-13] MEDS: HEPARIN SODIUM,PORCINE 5,000 UNITS/ML VIAL SQ SCH ×4 (01:26→20:52)
[2017-06-13] MEDS: INSULIN REGULAR, HUMAN 100 UNITS/ML SQ PRN ×6 (01:27→23:39)
[2017-06-13] MEDS: ALBUMIN HUMAN 25%-25GM/100ML 100 ML IV SCH ×3 (03:50→18:43)
[2017-06-13] MEDS: PIPERACILLIN/TAZO 3.375 GM/D5W 50 ML IV SCH ×4 (03:50→20:52)
[2017-06-13] MEDS: PROPOFOL 1000 MG/ISO-OSM 100 ML IV PRN ×4 (03:51→23:02)
[2017-06-13 05:03] LABS: BASOPHILS # (AUTO) 0.01 K/uL (0.00-0.20); BASOPHILS % (AUTO) 0.2 % (0.0-2.0); EOSINOPHILS # (AUTO) 0.06 K/uL (0.00-0.70); EOSINOPHILS % (AUTO) 0.71 % (1.0-6.0); HEMATOCRIT 23.8 % (41-53); HEMOGLOBIN 8.1 g/dL (13.5-17.5); LYMPHOCYTES # (AUTO) 0.9 K/uL (1.0-4.8); LYMPHOCYTES % (AUTO) 11.3 % (22.0-44.0); MEAN CORPUSCULAR HEMOGLOBIN 26.5 pg (26.0-34.0); MEAN CORPUSCULAR HGB CONC 34.1 G/dL (31.0-37.0); MEAN CORPUSCULAR VOLUME 78 fL (80-100); MONOCYTES # (AUTO) 0.2 K/uL (0.1-1.0); MONOCYTES % (AUTO) 2.1 % (2.0-9.0); NEUTROPHILS # (AUTO) 6.8 K/uL (1.8-7.7); PLATELET COUNT (AUTO) 125 K/uL (150-450); RED BLOOD CELL COUNT(AUTO) 3.07 MIL/uL (4.50-5.90); RED CELL DISTRIBUTION WIDTH 15.5 % (11.5-14.5); WHITE BLOOD COUNT (AUTO) 7.9 K/uL (4.5-11.0)
[2017-06-13 05:13] LABS: CALCIUM, TOTAL 6.9 mg/dL (8.8-10.5); CREATININE 1.79 mg/dL (0.60-1.30); POTASSIUM 3.3 mmol/L (3.5-5.1)
[2017-06-13 05:20] LABS: NEUTROPHILS % (AUTO) 85.8 % (40.0-70.0)
[2017-06-13 06:56] LABS: MAGNESIUM 2.1 mg/dL (1.80-2.40); PHOSPHORUS 4.3 mg/dL (2.5-4.9)
[2017-06-13 07:42] LABS: RBC MORPHOLOGY COMMENT ABNORMAL RBC MORPH
[2017-06-13] MEDS ORDERED: VANCOMYCIN HCL 1.25 GM in DEXTROSE 5%-WATER 250 ML IV SCH (08:00)
[2017-06-13] MEDS: DOCUSATE SODIUM 100 MG CAPSULE PO SCH ×2 (08:14→20:49)
[2017-06-13 08:37] LABS: GLUCOSE COMMENT 1 Received Meds; GLUCOSE,POINT OF CARE 237 MG/DL (70-110)
[2017-06-13 08:37] LABS: GLUCOSE COMMENT 1 Received Meds; GLUCOSE,POINT OF CARE 215 MG/DL (70-110)
[2017-06-13 08:37] LABS: GLUCOSE COMMENT 1 Received Meds; GLUCOSE,POINT OF CARE 218 MG/DL (70-110)
[2017-06-13] MEDS: SODIUM CHLORIDE 0.45% 1,000 ML IV SCH (08:50)
[2017-06-13] MEDS: ACETAMINOPHEN 325 MG TABLET PO PRN (08:51)
[2017-06-13] MEDS: AMIODARONE HCL 200 MG TABLET PO SCH ×3 (08:51→20:49)
[2017-06-13] MEDS: POTASSIUM CHL 10 MEQ/WATER 50 ML IV SCH ×2 (08:52→09:57)
[2017-06-13] MEDS: PANTOPRAZOLE SODIUM 40 MG DR TABLET PO SCH (08:53)
[2017-06-13 11:45] LABS: ABG A-A DIFF O2 134.4 mmHg (10-20.0); ABG BASE EXCESS -2.9 mmol/L (-2.0-3.0); ABG HCO3 22.6 mmol/L (22.0-26.0); ABG PCO2 30 mmHg (35-45); ABG PH 7.465 (7.35-7.450); TEMPERATURE, FAHRENHEIT, BG 97.8 FAHREN (96.0-98.6)
[2017-06-13 11:46] LABS: ALLEN TEST, BLOOD GAS Positive
[2017-06-13 11:48] LABS: GLUCOSE,POINT OF CARE 244 MG/DL (70-110)
[2017-06-13 16:53] LABS: ABG A-A DIFF O2 135.8 mmHg (10-20.0); ABG BASE EXCESS -1.5 mmol/L (-2.0-3.0); ABG HCO3 23.7 mmol/L (22.0-26.0); ABG OXYHEMOGLOBIN 94.9 % (94.0-100.0); ABG PCO2 30 mmHg (35-45); ABG PH 7.484 (7.35-7.450); TEMPERATURE, FAHRENHEIT, BG 98.6 FAHREN (96.0-98.6)
[2017-06-13 16:54] LABS: ALLEN TEST, BLOOD GAS Positive
[2017-06-13 17:13] LABS: GLUCOSE,POINT OF CARE 222 MG/DL (70-110)
[2017-06-13 21:30] LABS: OCCULT BLOOD STOOL SINGLE ONLY POSITIVE (NEGATIVE)
[2017-06-14] VITALS (8 sets, daily range): BP systolic 112–160; BP diastolic 55–72
[2017-06-14] MEDS: CLINDAMYCIN 900 MG/D5% WATER 50 ML IV SCH ×3 (01:14→17:44)
[2017-06-14] MEDS: PIPERACILLIN/TAZO 3.375 GM/D5W 50 ML IV SCH ×4 (03:38→21:56)
[2017-06-14] MEDS: PROPOFOL 1000 MG/ISO-OSM 100 ML IV PRN ×4 (03:38→14:07)
[2017-06-14] MEDS: ALBUMIN HUMAN 25%-25GM/100ML 100 ML IV SCH ×3 (03:39→18:04)
[2017-06-14] MEDS: INSULIN REGULAR, HUMAN 100 UNITS/ML SQ PRN ×6 (04:23→23:55)
[2017-06-14 05:32] LABS: BASOPHILS # (AUTO) 0.02 K/uL (0.00-0.20); BASOPHILS % (AUTO) 0.3 % (0.0-2.0); EOSINOPHILS # (AUTO) 0.06 K/uL (0.00-0.70); EOSINOPHILS % (AUTO) 0.85 % (1.0-6.0); HEMATOCRIT 23.7 % (41-53); LYMPHOCYTES # (AUTO) 0.8 K/uL (1.0-4.8); LYMPHOCYTES % (AUTO) 11.3 % (22.0-44.0); MEAN CORPUSCULAR HEMOGLOBIN 26.3 pg (26.0-34.0); MEAN CORPUSCULAR HGB CONC 33.7 G/dL (31.0-37.0); MEAN CORPUSCULAR VOLUME 78 fL (80-100); MONOCYTES # (AUTO) 0.2 K/uL (0.1-1.0); MONOCYTES % (AUTO) 3.2 % (2.0-9.0); NEUTROPHILS # (AUTO) 5.9 K/uL (1.8-7.7); NEUTROPHILS % (AUTO) 84.3 % (40.0-70.0); PLATELET COUNT (AUTO) 136 K/uL (150-450); RED BLOOD CELL COUNT(AUTO) 3.04 MIL/uL (4.50-5.90); RED CELL DISTRIBUTION WIDTH 15.2 % (11.5-14.5)
[2017-06-14 05:53] LABS: GLUCOSE,POINT OF CARE 245 MG/DL (70-110)
[2017-06-14 05:53] LABS: GLUCOSE COMMENT 1 Received Meds; GLUCOSE,POINT OF CARE 218 MG/DL (70-110)
[2017-06-14 05:59] LABS: ALANINE AMINOTRANSFERASE 26 U/L (12-78); ALBUMIN 2.4 g/dL (3.4-5.0); ANION GAP 10 mmol/L (8-16); ASPARTATE AMINOTRANSFERASE 27 U/L (15-37); BILIRUBIN,TOTAL 1.2 mg/dL (0.1-1.0); CALCIUM, TOTAL 7.2 mg/dL (8.8-10.5); CARBON DIOXIDE 26 mmol/L (22-29); CHLORIDE 104 mmol/L (98-107); CREATININE 1.26 mg/dL (0.60-1.30); GLOMERULAR FILTR. RATE CALC > 60 mL/min (>60); PHOSPHORUS 3.8 mg/dL (2.5-4.9); POTASSIUM 3.2 mmol/L (3.5-5.1); SODIUM SERUM 140 mmol/L (136-145); TOTAL PROTEIN, SERUM 5.7 g/dL (6.4-8.2); UREA NITROGEN, BLOOD 41 mg/dL (7-18)
[2017-06-14 06:13] LABS: GLUCOSE COMMENT 1 Received Meds; GLUCOSE,POINT OF CARE 217 MG/DL (70-110)
[2017-06-14] MEDS ORDERED: POTASSIUM CHLORIDE 20 MEQ ER TABLET PO ONE (07:45)
[2017-06-14] MEDS: DOCUSATE SODIUM 100 MG CAPSULE PO SCH ×2 (09:00→20:28)
[2017-06-14] MEDS: POTASSIUM CHL 10 MEQ/WATER 50 ML IV SCH ×2 (09:02→10:12)
[2017-06-14] MEDS: VANCOMYCIN HCL 1.25 GM in DEXTROSE 5%-WATER 250 ML IV SCH ×2 (09:03→20:27)
[2017-06-14] MEDS: AMIODARONE HCL 200 MG TABLET PO SCH ×3 (09:03→20:28)
[2017-06-14] MEDS: PANTOPRAZOLE SODIUM 40 MG DR TABLET PO SCH (09:03)
[2017-06-14] MEDS ORDERED: POTASSIUM CHLORIDE 20 MEQ ER TABLET PO PRN (15:45)
[2017-06-14 17:52] LABS: ABG A-A DIFF O2 145.2 mmHg (10-20.0); ABG HCO3 26.3 mmol/L (22.0-26.0); ABG OXYHEMOGLOBIN 91.5 % (94.0-100.0); ABG PCO2 33 mmHg (35-45); ALLEN TEST, BLOOD GAS Positive; TEMPERATURE, FAHRENHEIT, BG 99.3 FAHREN (96.0-98.6)
[2017-06-14 20:17] LABS: GLUCOSE COMMENT 1 Received Meds; GLUCOSE,POINT OF CARE 261 MG/DL (70-110)
[2017-06-14 20:17] LABS: GLUCOSE COMMENT 1 Received Meds; GLUCOSE,POINT OF CARE 276 MG/DL (70-110)
[2017-06-14] MEDS ORDERED: SODIUM CHLORIDE 0.9% 500 ML IV ONE (21:02)
[2017-06-15] VITALS: BP 152/68
[2017-06-15] MEDS: ALBUMIN HUMAN 25%-25GM/100ML 100 ML IV SCH ×3 (03:53→18:01)
[2017-06-15] MEDS: AMPICILLIN SODIUM/SULBACTAM NA 3 GM in SODIUM CHLORIDE 0.9% 100 ML IV SCH ×4 (03:53→21:59)
[2017-06-15 04:00] VITALS: BP 150/66
[2017-06-15] MEDS: INSULIN REGULAR, HUMAN 100 UNITS/ML SQ PRN ×5 (04:07→21:49)
[2017-06-15 05:26] LABS: ANION GAP 10 mmol/L (8-16); CALCIUM, TOTAL 7.4 mg/dL (8.8-10.5); CARBON DIOXIDE 26 mmol/L (22-29); CHLORIDE 107 mmol/L (98-107); CREATININE 0.86 mg/dL (0.60-1.30); GLOMERULAR FILTR. RATE CALC > 60 mL/min (>60); PHOSPHORUS 2.7 mg/dL (2.5-4.9); POTASSIUM 3.2 mmol/L (3.5-5.1); SODIUM SERUM 143 mmol/L (136-145); UREA NITROGEN, BLOOD 27 mg/dL (7-18)
[2017-06-15] MEDS: POTASSIUM CHL 10 MEQ/WATER 50 ML IV PRN ×3 (05:43→07:17)
[2017-06-15 08:00] VITALS: BP 153/67
[2017-06-15] MEDS ORDERED: MAGNESIUM SULFATE 1 GM in DEXTROSE 5%-WATER 50 ML IV ONE (08:00)
[2017-06-15] MEDS ORDERED: POTASSIUM CHLORIDE 10% 40 MEQ/30 ML LIQUID UDCUP NG ONE (08:00)
[2017-06-15] MEDS ORDERED: AmLODIPine BESYLATE 5 MG TABLET PO SCH (09:00)
[2017-06-15] MEDS: DOCUSATE SODIUM 100 MG CAPSULE PO SCH ×2 (09:16→21:00)
[2017-06-15] MEDS: PANTOPRAZOLE SODIUM 40 MG DR TABLET PO SCH (09:17)
[2017-06-15] MEDS: AMIODARONE HCL 200 MG TABLET PO SCH ×3 (09:17→20:41)
[2017-06-15 11:58] LABS: GLUCOSE COMMENT 1 Received Meds; GLUCOSE,POINT OF CARE 234 MG/DL (70-110)
[2017-06-15 11:59] LABS: GLUCOSE,POINT OF CARE 234 MG/DL (70-110)
[2017-06-15 11:59] LABS: GLUCOSE,POINT OF CARE 256 MG/DL (70-110)
[2017-06-15 11:59] LABS: GLUCOSE,POINT OF CARE 230 MG/DL (70-110)
[2017-06-15 11:59] LABS: GLUCOSE,POINT OF CARE 219 MG/DL (70-110)
[2017-06-15 12:00] VITALS: BP 150/71
[2017-06-15] MEDS: ALBUTEROL SULFATE 2.5 MG/0.5 ML NEB SOLUTION NEB SCH ×2 (14:11→20:02)
[2017-06-15] MEDS: IPRATROPIUM BROMIDE 0.5 MG/2.5 ML NEB SOLUTION NEB SCH ×2 (14:11→20:02)
[2017-06-15 16:00] VITALS: BP 145/66
[2017-06-15 16:58] LABS: GLUCOSE,POINT OF CARE 286 MG/DL (70-110)
[2017-06-15 16:58] LABS: GLUCOSE,POINT OF CARE 271 MG/DL (70-110)
[2017-06-15] MEDS: ACETAMINOPHEN 325 MG TABLET PO PRN (19:23)
[2017-06-15 20:00] VITALS: BP 151/69
[2017-06-15 22:27] LABS: GLUCOSE,POINT OF CARE 232 MG/DL (70-110)
[2017-06-15 22:27] LABS: GLUCOSE COMMENT 1 Received Meds; GLUCOSE,POINT OF CARE 281 MG/DL (70-110)
[2017-06-16] VITALS (7 sets, daily range): BP systolic 124–179; BP diastolic 65–76
[2017-06-16] MEDS: INSULIN REGULAR, HUMAN 100 UNITS/ML SQ PRN ×5 (00:55→20:33)
[2017-06-16 03:03] LABS: GLUCOSE COMMENT 1 Received Meds; GLUCOSE,POINT OF CARE 294 MG/DL (70-110)
[2017-06-16] MEDS: IPRATROPIUM BROMIDE 0.5 MG/2.5 ML NEB SOLUTION NEB SCH ×4 (03:08→19:58)
[2017-06-16] MEDS: ALBUTEROL SULFATE 2.5 MG/0.5 ML NEB SOLUTION NEB SCH ×4 (03:08→19:58)
[2017-06-16] MEDS: ALBUMIN HUMAN 25%-25GM/100ML 100 ML IV SCH (03:14)
[2017-06-16] MEDS: AMPICILLIN SODIUM/SULBACTAM NA 3 GM in SODIUM CHLORIDE 0.9% 100 ML IV SCH ×4 (04:14→21:51)
[2017-06-16] MEDS: ACETAMINOPHEN 325 MG TABLET PO PRN (04:56)
[2017-06-16 05:25] LABS: BASOPHILS % (AUTO) 0.5 % (0.0-2.0); EOSINOPHILS % (AUTO) 0.5 % (1.0-6.0); HEMATOCRIT 22.6 % (41-53); HEMOGLOBIN 7.5 g/dL (13.5-17.5); LYMPHOCYTES # (AUTO) 0.9 K/uL (1.0-4.8); LYMPHOCYTES % (AUTO) 11.2 % (22.0-44.0); MEAN CORPUSCULAR HGB CONC 33.2 G/dL (31.0-37.0); MEAN CORPUSCULAR VOLUME 79 fL (80-100); MONOCYTES # (AUTO) 0.4 K/uL (0.1-1.0); MONOCYTES % (AUTO) 4.6 % (2.0-9.0); NEUTROPHILS # (AUTO) 6.6 K/uL (1.8-7.7); NEUTROPHILS % (AUTO) 83.2 % (40.0-70.0); PLATELET COUNT (AUTO) 291 K/uL (150-450); RED BLOOD CELL COUNT(AUTO) 2.88 MIL/uL (4.50-5.90); RED CELL DISTRIBUTION WIDTH 15.4 % (11.5-14.5)
[2017-06-16 05:28] LABS: ANION GAP 10 mmol/L (8-16); CALCIUM, TOTAL 7.6 mg/dL (8.8-10.5); CARBON DIOXIDE 27 mmol/L (22-29); CHLORIDE 111 mmol/L (98-107); CREATININE 0.72 mg/dL (0.60-1.30); GLOMERULAR FILTR. RATE CALC > 60 mL/min (>60); POTASSIUM 3.2 mmol/L (3.5-5.1); SODIUM SERUM 148 mmol/L (136-145); UREA NITROGEN, BLOOD 23 mg/dL (7-18)
[2017-06-16 06:52] LABS: GLUCOSE COMMENT 1 Received Meds; GLUCOSE,POINT OF CARE 236 MG/DL (70-110)
[2017-06-16] MEDS ORDERED: POTASSIUM CHLORIDE 10% 40 MEQ/30 ML LIQUID UDCUP PO ONE (07:45)
[2017-06-16] MEDS: POTASSIUM CHL 10 MEQ/WATER 50 ML IV SCH ×3 (08:38→09:26)
[2017-06-16] MEDS: DOCUSATE SODIUM 100 MG CAPSULE PO SCH ×2 (08:38→21:00)
[2017-06-16] MEDS: AmLODIPine BESYLATE 10 MG TABLET PO SCH (08:38)
[2017-06-16] MEDS: MAGNESIUM SULFATE 1 GM in DEXTROSE 5%-WATER 50 ML IV SCH ×2 (08:38→20:33)
[2017-06-16] MEDS: AMIODARONE HCL 200 MG TABLET PO SCH ×3 (08:39→21:51)
[2017-06-16] MEDS: PANTOPRAZOLE SODIUM 40 MG DR TABLET PO SCH (08:39)
[2017-06-16] MEDS ORDERED: SODIUM CHLORIDE 0.9% 250 ML IV ONE (08:57)
[2017-06-16 11:27] LABS: GLUCOSE,POINT OF CARE 235 MG/DL (70-110)
[2017-06-16 12:02] LABS: GLUCOSE,POINT OF CARE 245 MG/DL (70-110)
[2017-06-16] MEDS ORDERED: SODIUM CHLORIDE 0.9% 100 ML ONE (22:07)
[2017-06-17] VITALS (14 sets, daily range): BP systolic 90–145; BP diastolic 49–79
[2017-06-17] MEDS: INSULIN REGULAR, HUMAN 100 UNITS/ML SQ PRN ×5 (00:10→23:40)
[2017-06-17 01:12] LABS: GLUCOSE COMMENT 1 Received Meds; GLUCOSE,POINT OF CARE 218 MG/DL (70-110)
[2017-06-17] MEDS: ALBUTEROL SULFATE 2.5 MG/0.5 ML NEB SOLUTION NEB SCH ×4 (02:24→19:31)
[2017-06-17] MEDS: IPRATROPIUM BROMIDE 0.5 MG/2.5 ML NEB SOLUTION NEB SCH ×4 (02:24→19:31)
[2017-06-17] MEDS: AMPICILLIN SODIUM/SULBACTAM NA 3 GM in SODIUM CHLORIDE 0.9% 100 ML IV SCH ×4 (04:54→21:31)
[2017-06-17 05:46] LABS: ANION GAP 10 mmol/L (8-16); CALCIUM, TOTAL 7.5 mg/dL (8.8-10.5); CARBON DIOXIDE 26 mmol/L (22-29); CHLORIDE 113 mmol/L (98-107); CREATININE 0.69 mg/dL (0.60-1.30); GLOMERULAR FILTR. RATE CALC > 60 mL/min (>60); POTASSIUM 3.1 mmol/L (3.5-5.1); SODIUM SERUM 149 mmol/L (136-145); UREA NITROGEN, BLOOD 17 mg/dL (7-18)
[2017-06-17 06:44] LABS: PROCALCITONIN (PCT) 0.63 ng/mL (<0.50)
[2017-06-17 07:46] LABS: BASOPHILS % (AUTO) 0.5 % (0.0-2.0); EOSINOPHILS % (AUTO) 0.4 % (1.0-6.0); HEMATOCRIT 25.2 % (41-53); HEMOGLOBIN 8.3 g/dL (13.5-17.5); LYMPHOCYTES # (AUTO) 1.2 K/uL (1.0-4.8); LYMPHOCYTES % (AUTO) 11.4 % (22.0-44.0); MEAN CORPUSCULAR HEMOGLOBIN 26.3 pg (26.0-34.0); MEAN CORPUSCULAR HGB CONC 32.9 G/dL (31.0-37.0); MEAN CORPUSCULAR VOLUME 80 fL (80-100); MONOCYTES # (AUTO) 0.2 K/uL (0.1-1.0); MONOCYTES % (AUTO) 2.3 % (2.0-9.0); PLATELET COUNT (AUTO) 378 K/uL (150-450); RED BLOOD CELL COUNT(AUTO) 3.16 MIL/uL (4.50-5.90); WHITE BLOOD COUNT (AUTO) 10.5 K/uL (4.5-11.0)
[2017-06-17 07:55] LABS: NEUTROPHILS % (AUTO) 85.4 % (40.0-70.0)
[2017-06-17 08:12] LABS: GLUCOSE COMMENT 1 Received Meds; GLUCOSE,POINT OF CARE 248 MG/DL (70-110)
[2017-06-17 08:12] LABS: GLUCOSE COMMENT 1 Received Meds; GLUCOSE,POINT OF CARE 202 MG/DL (70-110)
[2017-06-17 08:47] LABS: GLUCOSE COMMENT 1 Received Meds; GLUCOSE,POINT OF CARE 248 MG/DL (70-110)
[2017-06-17] MEDS: AMIODARONE HCL 200 MG TABLET PO SCH ×3 (09:00→19:56)
[2017-06-17] MEDS: DOCUSATE SODIUM 100 MG CAPSULE PO SCH ×2 (09:00→21:00)
[2017-06-17] MEDS: PANTOPRAZOLE SODIUM 40 MG DR TABLET PO SCH (09:00)
[2017-06-17] MEDS: AmLODIPine BESYLATE 10 MG TABLET PO SCH (09:00)
[2017-06-17] MEDS ORDERED: HALOPERIDOL LACTATE 5 MG/ML VIAL ONE (09:23)
[2017-06-17] MEDS ORDERED: HALOPERIDOL LACTATE 5 MG/ML VIAL IVP ONE (09:45)
[2017-06-17 10:19] LABS: ABG A-A DIFF O2 251.1 mmHg (10-20.0); ABG BASE EXCESS 2.3 mmol/L (-2.0-3.0); ABG HCO3 26.3 mmol/L (22.0-26.0); ABG OXYHEMOGLOBIN 87.7 % (94.0-100.0); ABG PCO2 41 mmHg (35-45); ABG PH 7.432 (7.35-7.450); ALLEN TEST, BLOOD GAS Positive
[2017-06-17] MEDS ORDERED: POTASSIUM CHLORIDE 10% 40 MEQ/30 ML LIQUID UDCUP NG ONE (12:00)
[2017-06-17] MEDS: POTASSIUM CHL 10 MEQ/WATER 50 ML IV SCH ×4 (12:44→18:37)
[2017-06-17] MEDS ORDERED: LIDOCAINE HCL 1%/EPI 1:200,000/PF 30 ML VIAL ONE (12:56)
[2017-06-17] MEDS ORDERED: BUPIVACAINE HCL/PF 0.5% 30 ML VIAL ONE (12:56)
[2017-06-17 13:32] LABS: GLUCOSE COMMENT 1 Received Meds; GLUCOSE,POINT OF CARE 230 MG/DL (70-110)
[2017-06-17] MEDS ORDERED: SODIUM CHLORIDE 0.9% 1,000 ML IV ONE (13:35)
[2017-06-17] MEDS ORDERED: SODIUM HYPOCHLORITE 0.5% TP ONE (13:45)
[2017-06-17] MEDS ORDERED: SODIUM CHLORIDE 0.9% 10 ML ONE (14:05)
[2017-06-17] MEDS ORDERED: SODIUM CL IRRIG SOLN BAG 3,000 ML IRRIG ONE (14:05)
[2017-06-17] MEDS ORDERED: VANCOMYCIN HCL 1 GM/VIAL ONE (14:05)
[2017-06-17] MEDS: PROPOFOL 1000 MG/ISO-OSM 100 ML IV PRN ×3 (15:00→21:31)
[2017-06-17] MEDS: DEXTROSE 5%-WATER 1,000 ML IV SCH (16:05)
[2017-06-17 17:09] LABS: ABG A-A DIFF O2 226.9 mmHg (10-20.0); ABG BASE EXCESS 1.2 mmol/L (-2.0-3.0); ABG HCO3 25.7 mmol/L (22.0-26.0); ABG OXYHEMOGLOBIN 96.1 % (94.0-100.0); ABG PCO2 35 mmHg (35-45); ABG PH 7.473 (7.35-7.450); ALLEN TEST, BLOOD GAS Positive; TEMPERATURE, FAHRENHEIT, BG 98.6 FAHREN (96.0-98.6)
[2017-06-17] MEDS: ACETAMINOPHEN 325 MG TABLET PO PRN (19:57)
[2017-06-17 20:51] LABS: BASOPHILS # (AUTO) 0.01 K/uL (0.00-0.20); BASOPHILS % (AUTO) 0.1 % (0.0-2.0); EOSINOPHILS # (AUTO) 0.03 K/uL (0.00-0.70); EOSINOPHILS % (AUTO) 0.25 % (1.0-6.0); HEMATOCRIT 29.5 % (41-53); HEMOGLOBIN 9.7 g/dL (13.5-17.5); LYMPHOCYTES % (AUTO) 9.4 % (22.0-44.0); MEAN CORPUSCULAR HEMOGLOBIN 26.8 pg (26.0-34.0); MEAN CORPUSCULAR HGB CONC 32.8 G/dL (31.0-37.0); MEAN CORPUSCULAR VOLUME 81 fL (80-100); MONOCYTES % (AUTO) 0.3 % (2.0-9.0); NEUTROPHILS # (AUTO) 9.5 K/uL (1.8-7.7); PLATELET COUNT (AUTO) 428 K/uL (150-450); RED BLOOD CELL COUNT(AUTO) 3.62 MIL/uL (4.50-5.90); RED CELL DISTRIBUTION WIDTH 15.5 % (11.5-14.5); WHITE BLOOD COUNT (AUTO) 10.6 K/uL (4.5-11.0)
[2017-06-17 21:13] LABS: NEUTROPHILS % (AUTO) 89.9 % (40.0-70.0)
[2017-06-17 21:52] LABS: GLUCOSE COMMENT 1 Received Meds; GLUCOSE,POINT OF CARE 215 MG/DL (70-110)
[2017-06-17] MEDS ORDERED: VANCOMYCIN HCL 1 GM/D5% WATER 200 ML IV ONE (23:00)
[2017-06-17] MEDS: PIPERACILLIN/TAZO 3.375 GM/D5W 50 ML IV SCH (23:40)
[2017-06-18] VITALS (12 sets, daily range): BP systolic 79–105; BP diastolic 43–77
[2017-06-18] MEDS: ACETAMINOPHEN 325 MG TABLET PO PRN ×3 (00:40→16:07)
[2017-06-18] MEDS ORDERED: VANCOMYCIN HCL 1 GM/D5% WATER 200 ML IV ONE (01:00)
[2017-06-18] MEDS ORDERED: FentaNYL CITRATE-PF 100 MCG/2 ML VIAL IVP ONE (01:12)
[2017-06-18] MEDS ORDERED: MIDAZOLAM HCL 2 MG/2 ML VIAL IVP ONE (01:12)
[2017-06-18] MEDS: PROPOFOL 1000 MG/ISO-OSM 100 ML IV PRN ×4 (01:21→20:06)
[2017-06-18] MEDS: IPRATROPIUM BROMIDE 0.5 MG/2.5 ML NEB SOLUTION NEB SCH ×4 (02:09→19:31)
[2017-06-18] MEDS: ALBUTEROL SULFATE 2.5 MG/0.5 ML NEB SOLUTION NEB SCH ×4 (02:09→19:31)
[2017-06-18 04:32] LABS: APPEARANCE,URINE TURBID (CLEAR); GLUCOSE, URINE (UA) NEGATIVE (NEGATIVE); KETONES,URINE TRACE mg/dL (NEGATIVE); LEUKOCYTE ESTERASE ,URINE SMALL (NEGATIVE); OCCULT BLOOD,URINE LARGE (NEGATIVE); PROTEIN,URINE POS 1+ (NEGATIVE)
[2017-06-18 04:44] LABS: SQUAMOUS EPITHELIAL CELL,UR Rare /LPF (None Seen)
[2017-06-18] MEDS ORDERED: METOCLOPRAMIDE HCL 5 MG/ML 2 ML VIAL IVP ONE (05:11)
[2017-06-18] MEDS ORDERED: ROCURONIUM BROMIDE 10 MG/ML 5 ML VIAL IVP ONE (05:11)
[2017-06-18] MEDS ORDERED: SUCCINYLCHOLINE CHLORIDE 20 MG/ML 10 ML VIAL IVP ONE (05:11)
[2017-06-18] MEDS ORDERED: ONDANSETRON HCL 4 MG/2 ML VIAL IVP ONE (05:11)
[2017-06-18] MEDS: INSULIN REGULAR, HUMAN 100 UNITS/ML SQ PRN ×4 (05:40→23:37)
[2017-06-18] MEDS: PIPERACILLIN/TAZO 3.375 GM/D5W 50 ML IV SCH ×4 (05:40→23:37)
[2017-06-18 05:48] LABS: BASOPHILS % (AUTO) 0.4 % (0.0-2.0); EOSINOPHILS % (AUTO) 0.1 % (1.0-6.0); HEMATOCRIT 28.4 % (41-53); HEMOGLOBIN 9.3 g/dL (13.5-17.5); LYMPHOCYTES # (AUTO) 1.6 K/uL (1.0-4.8); LYMPHOCYTES % (AUTO) 9.9 % (22.0-44.0); MEAN CORPUSCULAR HEMOGLOBIN 26.6 pg (26.0-34.0); MEAN CORPUSCULAR HGB CONC 32.9 G/dL (31.0-37.0); MEAN CORPUSCULAR VOLUME 81 fL (80-100); MONOCYTES # (AUTO) 0.3 K/uL (0.1-1.0); MONOCYTES % (AUTO) 1.6 % (2.0-9.0); NEUTROPHILS # (AUTO) 14.1 K/uL (1.8-7.7); PLATELET COUNT (AUTO) 383 K/uL (150-450); RED BLOOD CELL COUNT(AUTO) 3.52 MIL/uL (4.50-5.90); RED CELL DISTRIBUTION WIDTH 15.4 % (11.5-14.5); WHITE BLOOD COUNT (AUTO) 16.1 K/uL (4.5-11.0)
[2017-06-18 06:05] LABS: CALCIUM, TOTAL 7.3 mg/dL (8.8-10.5); CREATININE 1.44 mg/dL (0.60-1.30); MAGNESIUM 1.3 mg/dL (1.80-2.40); POTASSIUM 4.3 mmol/L (3.5-5.1)
[2017-06-18] MEDS ORDERED: VANCOMYCIN HCL 1.5 GM in DEXTROSE 5%-WATER 250 ML IV SCH (08:00)
[2017-06-18] MEDS ORDERED: MAGNESIUM SULFATE 4 GM/WATER 100 ML IV PRN (08:30)
[2017-06-18] MEDS ORDERED: MAGNESIUM SULFATE 2 GM in DEXTROSE 5%-WATER 50 ML IV PRN (08:30)
[2017-06-18] MEDS ORDERED: MAGNESIUM OXIDE 400 MG TABLET PO PRN (08:30)
[2017-06-18 08:32] LABS: GLUCOSE COMMENT 1 Received Meds; GLUCOSE,POINT OF CARE 242 MG/DL (70-110)
[2017-06-18 08:32] LABS: GLUCOSE COMMENT 1 Received Meds; GLUCOSE,POINT OF CARE 269 MG/DL (70-110)
[2017-06-18] MEDS: DOCUSATE SODIUM 100 MG CAPSULE PO SCH ×2 (08:41→20:58)
[2017-06-18] MEDS: AMIODARONE HCL 200 MG TABLET PO SCH ×3 (08:42→20:57)
[2017-06-18] MEDS: PANTOPRAZOLE SODIUM 40 MG DR TABLET PO SCH (08:42)
[2017-06-18] MEDS: INSULIN DETEMIR 100 UNITS/ML SQ SCH ×2 (08:43→20:59)
[2017-06-18] MEDS: AmLODIPine BESYLATE 10 MG TABLET PO SCH (08:43)
[2017-06-18] MEDS: SODIUM HYPOCHLORITE 0.5% TP SCH ×2 (09:00→21:00)
[2017-06-18 09:12] LABS: ALBUMIN 1.8 g/dL (3.4-5.0)
[2017-06-18] MEDS ORDERED: MAGNESIUM SULFATE 2 GM in DEXTROSE 5%-WATER 50 ML IV ONE (10:00)
[2017-06-18] MEDS ORDERED: CASPOFUNGIN ACETATE 70 MG in SODIUM CHLORIDE 0.9% 250 ML IV ONE (12:30)
[2017-06-18] MEDS: NOREPINEPHRINE 4 MG/D5%-WATER 250 ML IV PRN ×2 (15:42→20:05)
[2017-06-18] MEDS: DEXTROSE 5%-WATER 1,000 ML IV SCH (17:00)
[2017-06-18 18:22] LABS: GLUCOSE,POINT OF CARE 364 MG/DL (70-110)
[2017-06-18 18:22] LABS: GLUCOSE,POINT OF CARE 327 MG/DL (70-110)
[2017-06-18] MEDS: LEVOFLOXACIN 750 MG/D5% WATER 150 ML IV SCH (20:58)
[2017-06-19] VITALS (10 sets, daily range): BP systolic 96–126; BP diastolic 52–69
[2017-06-19] MEDS: NOREPINEPHRINE 4 MG/D5%-WATER 250 ML IV PRN ×4 (00:26→15:56)
[2017-06-19] MEDS: ACETAMINOPHEN 325 MG TABLET PO PRN (00:28)
[2017-06-19] MEDS: ALBUTEROL SULFATE 2.5 MG/0.5 ML NEB SOLUTION NEB SCH ×4 (02:44→19:47)
[2017-06-19] MEDS: IPRATROPIUM BROMIDE 0.5 MG/2.5 ML NEB SOLUTION NEB SCH ×4 (02:44→19:47)
[2017-06-19] MEDS: PROPOFOL 1000 MG/ISO-OSM 100 ML IV PRN ×2 (04:27→13:35)
[2017-06-19] MEDS: PIPERACILLIN/TAZO 3.375 GM/D5W 50 ML IV SCH ×4 (05:12→23:33)
[2017-06-19] MEDS: INSULIN REGULAR, HUMAN 100 UNITS/ML SQ PRN ×4 (05:12→23:33)
[2017-06-19 05:55] LABS: ALBUMIN 1.5 g/dL (3.4-5.0); BILIRUBIN,TOTAL 0.8 mg/dL (0.1-1.0); CALCIUM, TOTAL 7.3 mg/dL (8.8-10.5); CREATININE 2.21 mg/dL (0.60-1.30); MAGNESIUM 1.6 mg/dL (1.80-2.40); POTASSIUM 4.1 mmol/L (3.5-5.1); TOTAL PROTEIN, SERUM 5.5 g/dL (6.4-8.2)
[2017-06-19 06:08] LABS: GLUCOSE COMMENT 1 Received Meds; GLUCOSE,POINT OF CARE 312 MG/DL (70-110)
[2017-06-19 06:08] LABS: GLUCOSE COMMENT 1 Received Meds; GLUCOSE,POINT OF CARE 288 MG/DL (70-110)
[2017-06-19 06:08] LABS: GLUCOSE COMMENT 1 Received Meds; GLUCOSE,POINT OF CARE 293 MG/DL (70-110)
[2017-06-19 06:09] LABS: BASOPHILS % (AUTO) 0.5 % (0.0-2.0); EOSINOPHILS % (AUTO) 0.4 % (1.0-6.0); HEMATOCRIT 26.2 % (41-53); HEMOGLOBIN 8.8 g/dL (13.5-17.5); LYMPHOCYTES # (AUTO) 1.9 K/uL (1.0-4.8); LYMPHOCYTES % (AUTO) 9.5 % (22.0-44.0); MEAN CORPUSCULAR HEMOGLOBIN 26.8 pg (26.0-34.0); MEAN CORPUSCULAR HGB CONC 33.4 G/dL (31.0-37.0); MEAN CORPUSCULAR VOLUME 80 fL (80-100); MONOCYTES # (AUTO) 0.4 K/uL (0.1-1.0); MONOCYTES % (AUTO) 1.9 % (2.0-9.0); NEUTROPHILS # (AUTO) 17.1 K/uL (1.8-7.7); PLATELET COUNT (AUTO) 420 K/uL (150-450); RED BLOOD CELL COUNT(AUTO) 3.27 MIL/uL (4.50-5.90); RED CELL DISTRIBUTION WIDTH 15.8 % (11.5-14.5); WHITE BLOOD COUNT (AUTO) 19.6 K/uL (4.5-11.0)
[2017-06-19 07:16] LABS: NEUTROPHILS % (AUTO) 87.7 % (40.0-70.0)
[2017-06-19] MEDS: DOCUSATE SODIUM 100 MG CAPSULE PO SCH ×2 (09:38→21:00)
[2017-06-19] MEDS: AMIODARONE HCL 200 MG TABLET PO SCH ×3 (09:38→21:11)
[2017-06-19] MEDS: INSULIN DETEMIR 100 UNITS/ML SQ SCH ×2 (09:38→21:13)
[2017-06-19] MEDS: SODIUM HYPOCHLORITE 0.5% TP SCH ×2 (09:46→21:12)
[2017-06-19] MEDS: PANTOPRAZOLE SODIUM 40 MG DR TABLET PO SCH (09:46)
[2017-06-19 10:02] LABS: GLUCOSE,POINT OF CARE 278 MG/DL (70-110)
[2017-06-19] MEDS ORDERED: SODIUM CHLORIDE 0.9% 500 ML IV ONE (10:16)
[2017-06-19] MEDS: ALBUMIN HUMAN 25%-25GM/100ML 100 ML IV SCH ×2 (12:07→18:00)
[2017-06-19] MEDS ORDERED: CASPOFUNGIN ACETATE 50 MG in SODIUM CHLORIDE 0.9% 250 ML IV SCH (13:00)
[2017-06-19 14:37] LABS: GLUCOSE,POINT OF CARE 299 MG/DL (70-110)
[2017-06-19] MEDS ORDERED: VANCOMYCIN HCL 1 GM/D5% WATER 200 ML IV PRN (15:00)
[2017-06-19] MEDS: DEXTROSE 5%-WATER 1,000 ML IV SCH (15:55)
[2017-06-19] MEDS ORDERED: VANCOMYCIN HCL 1 GM/D5% WATER 200 ML IV ONE (16:00)
[2017-06-19 16:08] LABS: ALLEN TEST, BLOOD GAS Positive
[2017-06-19 16:09] LABS: ABG HCO3 21.9 mmol/L (22.0-26.0); ABG PCO2 29 mmHg (35-45); ABG PH 7.458 (7.35-7.450); TEMPERATURE, FAHRENHEIT, BG 98.6 FAHREN (96.0-98.6)
[2017-06-19 16:10] LABS: ABG A-A DIFF O2 105.4 mmHg (10-20.0); ABG BASE EXCESS -3.7 mmol/L (-2.0-3.0); ABG OXYHEMOGLOBIN 93.9 % (94.0-100.0)
[2017-06-19] MEDS ORDERED: SODIUM CHLORIDE 0.9% 250 ML IV ONE (18:06)
[2017-06-19 18:13] LABS: GLUCOSE,POINT OF CARE 290 MG/DL (70-110)
[2017-06-19] MEDS: LEVOFLOXACIN 750 MG/D5% WATER 150 ML IV SCH (21:12)
[2017-06-19 22:12] LABS: GLUCOSE COMMENT 1 Received Meds; GLUCOSE,POINT OF CARE 266 MG/DL (70-110)
[2017-06-20] VITALS (13 sets, daily range): BP systolic 92–125; BP diastolic 47–69
[2017-06-20] MEDS: ALBUTEROL SULFATE 2.5 MG/0.5 ML NEB SOLUTION NEB SCH ×4 (02:37→20:12)
[2017-06-20] MEDS: IPRATROPIUM BROMIDE 0.5 MG/2.5 ML NEB SOLUTION NEB SCH ×4 (02:37→20:12)
[2017-06-20] MEDS: ALBUMIN HUMAN 25%-25GM/100ML 100 ML IV SCH ×3 (03:52→22:00)
[2017-06-20] MEDS: PIPERACILLIN/TAZO 3.375 GM/D5W 50 ML IV SCH ×3 (05:33→18:37)
[2017-06-20] MEDS: INSULIN REGULAR, HUMAN 100 UNITS/ML SQ PRN ×2 (05:36→11:15)
[2017-06-20 05:57] LABS: GLUCOSE COMMENT 1 Received Meds; GLUCOSE,POINT OF CARE 182 MG/DL (70-110)
[2017-06-20 05:57] LABS: GLUCOSE COMMENT 1 Received Meds; GLUCOSE,POINT OF CARE 255 MG/DL (70-110)
[2017-06-20 06:03] LABS: CALCIUM, TOTAL 7.7 mg/dL (8.8-10.5); CREATININE 1.96 mg/dL (0.60-1.30); POTASSIUM 3.4 mmol/L (3.5-5.1)
[2017-06-20 06:42] LABS: HEMATOCRIT 21.6 % (41-53); HEMOGLOBIN 7.1 g/dL (13.5-17.5); MEAN CORPUSCULAR HEMOGLOBIN 26.4 pg (26.0-34.0); MEAN CORPUSCULAR HGB CONC 32.7 G/dL (31.0-37.0); MEAN CORPUSCULAR VOLUME 81 fL (80-100); PLATELET COUNT (AUTO) 369 K/uL (150-450); RED BLOOD CELL COUNT(AUTO) 2.67 MIL/uL (4.50-5.90); RED CELL DISTRIBUTION WIDTH 15.7 % (11.5-14.5); WHITE BLOOD COUNT (AUTO) 7.9 K/uL (4.5-11.0)
[2017-06-20 07:24] LABS: MAGNESIUM 1.9 mg/dL (1.80-2.40)
[2017-06-20 08:53] LABS: LYMPHOCYTES % (MANUAL) 10 % (22-44); TOTAL CELLS COUNTED 100
[2017-06-20 08:54] LABS: RBC MORPHOLOGY COMMENT NORMAL RBC MORPH
[2017-06-20] MEDS: DOCUSATE SODIUM 100 MG CAPSULE PO SCH ×2 (09:00→22:03)
[2017-06-20] MEDS: AMIODARONE HCL 200 MG TABLET PO SCH ×3 (09:47→19:55)
[2017-06-20] MEDS: PANTOPRAZOLE SODIUM 40 MG DR TABLET PO SCH (09:47)
[2017-06-20] MEDS: INSULIN DETEMIR 100 UNITS/ML SQ SCH ×2 (09:48→22:05)
[2017-06-20] MEDS: SODIUM HYPOCHLORITE 0.5% TP SCH (09:48)
[2017-06-20] MEDS: POTASSIUM CHL 10 MEQ/WATER 50 ML IV SCH ×4 (10:26→14:37)
[2017-06-20 11:53] LABS: HEMATOCRIT 22.3 % (41-53); HEMOGLOBIN 7.6 g/dL (13.5-17.5)
[2017-06-20 12:17] LABS: GLUCOSE,POINT OF CARE 177 MG/DL (70-110)
[2017-06-20 12:18] LABS: GLUCOSE,POINT OF CARE 196 MG/DL (70-110)
[2017-06-20] MEDS: DEXTROSE 5%-WATER 1,000 ML IV SCH (15:56)
[2017-06-20] MEDS ORDERED: DEXTROSE 50%-WATER 25 GM/50 ML SYRINGE IVP PRN (18:30)
[2017-06-20] MEDS: INSULIN ASPART 100 UNITS/ML SQ PRN ×2 (18:45→22:08)
[2017-06-20] MEDS: HYDROCODONE/ACETAMINOPHEN 5-325 MG TABLET PO PRN (19:56)
[2017-06-21] MEDS: CefTRIAXone SODIUM 2 GM in DEXTROSE 5%-WATER 50 ML IV SCH (01:11)
[2017-06-21] MEDS: SODIUM HYPOCHLORITE 0.5% TP SCH ×3 (01:11→20:53)
[2017-06-21] MEDS: IPRATROPIUM BROMIDE 0.5 MG/2.5 ML NEB SOLUTION NEB SCH ×4 (02:43→20:06)
[2017-06-21] MEDS: ALBUTEROL SULFATE 2.5 MG/0.5 ML NEB SOLUTION NEB SCH ×4 (02:43→20:06)
[2017-06-21] MEDS: ALBUMIN HUMAN 25%-25GM/100ML 100 ML IV SCH ×2 (03:48→11:00)
[2017-06-21 04:43] VITALS: BP 130/58
[2017-06-21 05:28] LABS: GLUCOSE COMMENT 1 Received Meds; GLUCOSE,POINT OF CARE 240 MG/DL (70-110)
[2017-06-21 05:28] LABS: GLUCOSE COMMENT 1 Received Meds; GLUCOSE,POINT OF CARE 174 MG/DL (70-110)
[2017-06-21] MEDS: INSULIN ASPART 100 UNITS/ML SQ PRN ×4 (06:54→20:49)
[2017-06-21 07:47] VITALS: BP 118/57
[2017-06-21 08:17] LABS: CALCIUM, TOTAL 8.1 mg/dL (8.8-10.5); CREATININE 1.8 mg/dL (0.60-1.30); POTASSIUM 3.5 mmol/L (3.5-5.1)
[2017-06-21] MEDS: AMIODARONE HCL 200 MG TABLET PO SCH ×3 (08:54→20:48)
[2017-06-21] MEDS: PANTOPRAZOLE SODIUM 40 MG DR TABLET PO SCH (08:54)
[2017-06-21] MEDS: DOCUSATE SODIUM 100 MG CAPSULE PO SCH ×2 (09:00→20:52)
[2017-06-21] MEDS: INSULIN DETEMIR 100 UNITS/ML SQ SCH ×2 (09:09→20:50)
[2017-06-21] MEDS ORDERED: POTASSIUM CHLORIDE 10% 40 MEQ/30 ML LIQUID UDCUP PO ONE (11:00)
[2017-06-21 11:16] VITALS: BP 126/57
[2017-06-21 11:59] LABS: GLUCOSE COMMENT 1 Received Meds; GLUCOSE,POINT OF CARE 230 MG/DL (70-110)
[2017-06-21 15:19] VITALS: BP 133/57
[2017-06-21] MEDS: DEXTROSE 5%-WATER 1,000 ML IV SCH (15:30)
[2017-06-21] MEDS: POTASSIUM CHL 10 MEQ/WATER 50 ML IV SCH ×4 (17:06→23:54)
[2017-06-21 19:40] VITALS: BP 142/68
[2017-06-21 19:47] LABS: GLUCOSE COMMENT 1 Received Meds; GLUCOSE,POINT OF CARE 270 MG/DL (70-110)
[2017-06-21 19:47] LABS: GLUCOSE COMMENT 1 Received Meds; GLUCOSE,POINT OF CARE 249 MG/DL (70-110)
[2017-06-21 19:47] LABS: GLUCOSE COMMENT 1 Received Meds; GLUCOSE,POINT OF CARE 231 MG/DL (70-110)
[2017-06-21 20:42] LABS: GLUCOSE,POINT OF CARE 227 MG/DL (70-110)
[2017-06-21] MEDS ORDERED: LEVOFLOXACIN 750 MG/D5% WATER 150 ML IV SCH (21:00)
[2017-06-22] VITALS (7 sets, daily range): BP systolic 117–145; BP diastolic 60–78
[2017-06-22] MEDS: CefTRIAXone SODIUM 2 GM in DEXTROSE 5%-WATER 50 ML IV SCH ×2 (01:24→23:47)
[2017-06-22] MEDS: IPRATROPIUM BROMIDE 0.5 MG/2.5 ML NEB SOLUTION NEB SCH ×4 (02:19→20:57)
[2017-06-22] MEDS: ALBUTEROL SULFATE 2.5 MG/0.5 ML NEB SOLUTION NEB SCH ×4 (02:19→20:58)
[2017-06-22] MEDS: INSULIN ASPART 100 UNITS/ML SQ PRN ×4 (06:26→22:00)
[2017-06-22 06:53] LABS: CALCIUM, TOTAL 8.2 mg/dL (8.8-10.5); CREATININE 1.44 mg/dL (0.60-1.30)
[2017-06-22] MEDS: DOCUSATE SODIUM 100 MG CAPSULE PO SCH ×2 (08:09→20:33)
[2017-06-22] MEDS: PANTOPRAZOLE SODIUM 40 MG DR TABLET PO SCH (08:09)
[2017-06-22] MEDS: AMIODARONE HCL 200 MG TABLET PO SCH ×2 (08:09→20:34)
[2017-06-22] MEDS: SODIUM HYPOCHLORITE 0.5% TP SCH ×2 (08:10→21:56)
[2017-06-22] MEDS: INSULIN DETEMIR 100 UNITS/ML SQ SCH ×2 (08:11→21:57)
[2017-06-22 10:31] LABS: BASOPHILS % (AUTO) 1.2 % (0.0-2.0); EOSINOPHILS % (AUTO) 0.8 % (1.0-6.0); HEMATOCRIT 23.4 % (41-53); HEMOGLOBIN 7.8 g/dL (13.5-17.5); LYMPHOCYTES # (AUTO) 0.8 K/uL (1.0-4.8); LYMPHOCYTES % (AUTO) 15.7 % (22.0-44.0); MEAN CORPUSCULAR HEMOGLOBIN 26.8 pg (26.0-34.0); MEAN CORPUSCULAR HGB CONC 33.3 G/dL (31.0-37.0); MEAN CORPUSCULAR VOLUME 81 fL (80-100); MONOCYTES # (AUTO) 0.3 K/uL (0.1-1.0); MONOCYTES % (AUTO) 6.6 % (2.0-9.0); NEUTROPHILS % (AUTO) 75.7 % (40.0-70.0); PLATELET COUNT (AUTO) 469 K/uL (150-450); RED CELL DISTRIBUTION WIDTH 15.9 % (11.5-14.5); WHITE BLOOD COUNT (AUTO) 5.3 K/uL (4.5-11.0)
[2017-06-22] MEDS: HYDROCODONE/ACETAMINOPHEN 5-325 MG TABLET PO PRN (13:37)
[2017-06-22 14:52] LABS: GLUCOSE COMMENT 1 Received Meds; GLUCOSE,POINT OF CARE 333 MG/DL (70-110)
[2017-06-22 16:38] LABS: ABG A-A DIFF O2 256.9 mmHg (10-20.0); ABG BASE EXCESS -4.8 mmol/L (-2.0-3.0); ABG HCO3 20.8 mmol/L (22.0-26.0); ABG OXYHEMOGLOBIN 88.5 % (94.0-100.0); ABG PCO2 34 mmHg (35-45); TEMPERATURE, FAHRENHEIT, BG 98.6 FAHREN (96.0-98.6)
[2017-06-22 16:49] LABS: ALLEN TEST, BLOOD GAS POS
[2017-06-22 20:42] LABS: GLUCOSE,POINT OF CARE 339 MG/DL (70-110)
[2017-06-22 20:42] LABS: GLUCOSE COMMENT 1 Received Meds; GLUCOSE,POINT OF CARE 338 MG/DL (70-110)
[2017-06-22 20:43] LABS: GLUCOSE COMMENT 1 Received Meds; GLUCOSE,POINT OF CARE 336 MG/DL (70-110)
[2017-06-23] MEDS: IPRATROPIUM BROMIDE 0.5 MG/2.5 ML NEB SOLUTION NEB SCH ×4 (02:03→19:41)
[2017-06-23] MEDS: ALBUTEROL SULFATE 2.5 MG/0.5 ML NEB SOLUTION NEB SCH ×4 (02:03→19:41)
[2017-06-23 05:21] VITALS: BP 128/71
[2017-06-23] MEDS: INSULIN ASPART 100 UNITS/ML SQ PRN ×4 (06:25→21:58)
[2017-06-23 06:56] LABS: BASOPHILS % (AUTO) 0.6 % (0.0-2.0); EOSINOPHILS % (AUTO) 0.8 % (1.0-6.0); HEMATOCRIT 25.9 % (41-53); HEMOGLOBIN 8.6 g/dL (13.5-17.5); LYMPHOCYTES # (AUTO) 1.2 K/uL (1.0-4.8); LYMPHOCYTES % (AUTO) 13.7 % (22.0-44.0); MEAN CORPUSCULAR HEMOGLOBIN 26.7 pg (26.0-34.0); MEAN CORPUSCULAR HGB CONC 33.2 G/dL (31.0-37.0); MEAN CORPUSCULAR VOLUME 80 fL (80-100); MONOCYTES # (AUTO) 0.6 K/uL (0.1-1.0); MONOCYTES % (AUTO) 6.6 % (2.0-9.0); NEUTROPHILS # (AUTO) 7.1 K/uL (1.8-7.7); NEUTROPHILS % (AUTO) 78.3 % (40.0-70.0); PLATELET COUNT (AUTO) 617 K/uL (150-450); RED BLOOD CELL COUNT(AUTO) 3.23 MIL/uL (4.50-5.90); RED CELL DISTRIBUTION WIDTH 16.4 % (11.5-14.5); WHITE BLOOD COUNT (AUTO) 9.1 K/uL (4.5-11.0)
[2017-06-23 07:00] LABS: BILIRUBIN,TOTAL 0.5 mg/dL (0.1-1.0); CALCIUM, TOTAL 8.9 mg/dL (8.8-10.5); CREATININE 1.33 mg/dL (0.60-1.30); MAGNESIUM 1.7 mg/dL (1.80-2.40); POTASSIUM 4.6 mmol/L (3.5-5.1); TOTAL PROTEIN, SERUM 6.9 g/dL (6.4-8.2)
[2017-06-23 07:08] VITALS: BP 119/82
[2017-06-23] MEDS: AMIODARONE HCL 200 MG TABLET PO SCH (08:24)
[2017-06-23] MEDS: DOCUSATE SODIUM 100 MG CAPSULE PO SCH ×2 (08:24→21:53)
[2017-06-23] MEDS: PANTOPRAZOLE SODIUM 40 MG DR TABLET PO SCH (08:24)
[2017-06-23] MEDS: INSULIN DETEMIR 100 UNITS/ML SQ SCH ×2 (08:25→21:55)
[2017-06-23] MEDS: SODIUM HYPOCHLORITE 0.5% TP SCH ×2 (08:31→22:02)
[2017-06-23 11:39] VITALS: BP 150/70
[2017-06-23 15:45] LABS: ABG A-A DIFF O2 401.9 mmHg (10-20.0); ABG BASE EXCESS -3.3 mmol/L (-2.0-3.0); ABG HCO3 21.8 mmol/L (22.0-26.0); ABG OXYHEMOGLOBIN 86.2 % (94.0-100.0); ABG PCO2 38 mmHg (35-45); ABG PH 7.377 (7.35-7.450); TEMPERATURE, FAHRENHEIT, BG 98.8 FAHREN (96.0-98.6)
[2017-06-23 15:46] LABS: ALLEN TEST, BLOOD GAS Positive; IPAP, BG 14 cm H2O
[2017-06-23 16:03] VITALS: BP 119/70
[2017-06-23] MEDS: HYDROCODONE/ACETAMINOPHEN 5-325 MG TABLET PO PRN (16:15)
[2017-06-23] MEDS ORDERED: MetroNIDAZOLE 500 MG/NACL 100 ML IV SCH (18:00)
[2017-06-23] MEDS ORDERED: PHENYLEPHRINE 200 MG/D5%-WATER 250 ML IV PRN (18:21)
[2017-06-23] MEDS: NOREPINEPHRINE 4 MG/D5%-WATER 250 ML IV PRN ×2 (18:38→21:12)
[2017-06-23 20:00] VITALS: BP 85/40
[2017-06-23] MEDS ORDERED: OXYGEN THERAPY IH SCH (20:00)
[2017-06-23] MEDS ORDERED: SODIUM CHLORIDE 0.9% 250 ML IV ONE (20:34)
[2017-06-23 20:38] LABS: ABG A-A DIFF O2 576.6 mmHg (10-20.0); ABG BASE EXCESS -10.7 mmol/L (-2.0-3.0); ABG HCO3 15.5 mmol/L (22.0-26.0); ABG OXYHEMOGLOBIN 82.5 % (94.0-100.0); ABG PCO2 72 mmHg (35-45); ABG PH 7.057 (7.35-7.450); TEMPERATURE, FAHRENHEIT, BG 98.6 FAHREN (96.0-98.6)
[2017-06-23 20:39] LABS: ALLEN TEST, BLOOD GAS Positive
[2017-06-23] MEDS ORDERED: VASOPRESSIN 40 UNITS in DEXTROSE 5%-WATER 98 ML IV PRN (20:48)
[2017-06-23] MEDS ORDERED: DOPamine HCL 400 MG/D5%-WATER 250 ML IV PRN (20:48)
[2017-06-23] MEDS ORDERED: SODIUM BICARBONATE [ADULT] 8.4% 50 MEQ/50 ML SYRINGE IVP ONE ×2 (20:49→21:00)
[2017-06-23] MEDS ORDERED: DOPamine HCL 400 MG/D5%-WATER 250 ML IV ONE (20:50)
[2017-06-23] MEDS ORDERED: AMIODARONE HCL 200 MG TABLET PO SCH (21:00)
[2017-06-23] MEDS ORDERED: ALBUMIN HUMAN 25%-25GM/100ML 100 ML IV SCH (21:00)
[2017-06-23 22:30] VITALS: BP 79/46
[2017-06-24] MEDS ORDERED: ATROPINE SULFATE 0.1 MG/ML 10 ML SYRINGE IVP ONE (02:39)
[2017-06-24] MEDS ORDERED: EPINEPHrine 1:10,000 [1 MG/10 ML] SYRINGE IVP ONE (02:39)
[2017-06-24] MEDS ORDERED: SODIUM BICARBONATE [ADULT] 8.4% 50 MEQ/50 ML SYRINGE IVP ONE (02:39)
[2017-06-24 05:12] LABS: GLUCOSE,POINT OF CARE 315 MG/DL (70-110)
[2017-06-24 05:32] LABS: GLUCOSE COMMENT 1 Received Meds; GLUCOSE,POINT OF CARE 259 MG/DL (70-110)
[2017-06-24 06:18] LABS: GLUCOSE COMMENT 1 Received Meds; GLUCOSE,POINT OF CARE 390 MG/DL (70-110)
[2017-06-24 06:19] LABS: GLUCOSE,POINT OF CARE 342 MG/DL (70-110)
[2017-06-24 06:19] LABS: GLUCOSE COMMENT 1 Received Meds; GLUCOSE,POINT OF CARE 333 MG/DL (70-110)
[2017-06-24 06:19] LABS: GLUCOSE COMMENT 1 Received Meds; GLUCOSE,POINT OF CARE 335 MG/DL (70-110)
[2017-06-24 06:19] LABS: GLUCOSE,POINT OF CARE 312 MG/DL (70-110)
== END 2017-06-24 02:40 | disposition expired | DRG 710 ==
LOC: EMS 21:34 → ICU 23:05 → 5S 06-20 16:40 → ICU 06-23 16:55
PROVIDERS: ADMIT Internal Medicine; ATTEND Internal Medicine
PROC: 5A1955Z Respiratory Ventilation, Greater than 96 Consecutive Hours (ICD-10-PCS; principal; 2017-06-09)
PROC: 0BH17EZ Insertion of Endotracheal Airway into Trachea, Via Natural or Artificial Opening (ICD-10-PCS; 2017-06-09)
PROC: 02HV33Z Insertion of Infusion Device into Superior Vena Cava, Percutaneous Approach (ICD-10-PCS; 2017-06-09)
PROC: B548ZZA Ultrasonography of Superior Vena Cava, Guidance (ICD-10-PCS; 2017-06-09)
PROC: 0KB50ZZ Excision of Right Shoulder Muscle, Open Approach (ICD-10-PCS; 2017-06-17)
PROC: 30233N1 Transfusion of Nonautologous Red Blood Cells into Peripheral Vein, Percutaneous Approach (ICD-10-PCS; 2017-06-17)
PROC: 0BH17EZ Insertion of Endotracheal Airway into Trachea, Via Natural or Artificial Opening (ICD-10-PCS; 2017-06-23)
PROC: 02HV33Z Insertion of Infusion Device into Superior Vena Cava, Percutaneous Approach (ICD-10-PCS; 2017-06-23)
PROC: 5A1935Z Respiratory Ventilation, Less than 24 Consecutive Hours (ICD-10-PCS; 2017-06-23)
DX: A41.01 Sepsis due to Methicillin susceptible Staphylococcus aureus (principal); N17.0 Acute kidney failure with tubular necrosis; J96.01 Acute respiratory failure with hypoxia; R65.21 Severe sepsis with septic shock; I46.9 Cardiac arrest, cause unspecified; M72.6 Necrotizing fasciitis; G93.41 Metabolic encephalopathy; E11.10 Type 2 diabetes mellitus with ketoacidosis without coma; E43 Unspecified severe protein-calorie malnutrition; E11.22 Type 2 diabetes mellitus with diabetic chronic kidney disease; S41.001A Unspecified open wound of right shoulder, initial encounter; L02.413 Cutaneous abscess of right upper limb; E87.1 Hypo-osmolality and hyponatremia; I48.0 Paroxysmal atrial fibrillation; E86.0 Dehydration; E87.6 Hypokalemia; B95.61 Methicillin susceptible Staphylococcus aureus infection as the cause of diseases classified elsewhere; B96.20 Unspecified Escherichia coli [E. coli] as the cause of diseases classified elsewhere; B96.89 Other specified bacterial agents as the cause of diseases classified elsewhere; D63.8 Anemia in other chronic diseases classified elsewhere; E66.9 Obesity, unspecified; E83.39 Other disorders of phosphorus metabolism; E83.42 Hypomagnesemia; E83.51 Hypocalcemia; E87.0 Hyperosmolality and hypernatremia; E87.5 Hyperkalemia; E87.8 Other disorders of electrolyte and fluid balance, not elsewhere classified; G40.909 Epilepsy, unspecified, not intractable, without status epilepticus; I12.9 Hypertensive chronic kidney disease with stage 1 through stage 4 chronic kidney disease, or unspecified chronic kidney disease; L03.113 Cellulitis of right upper limb; N18.9 Chronic kidney disease, unspecified; Z51.5 Encounter for palliative care; Z79.4 Long term (current) use of insulin; Z68.33 Body mass index [BMI] 33.0-33.9, adult; Z79.899 Other long term (current) drug therapy; Z83.3 Family history of diabetes mellitus; Z82.49 Family history of ischemic heart disease and other diseases of the circulatory system; Z99.11 Dependence on respirator [ventilator] status; Z66 Do not resuscitate; Z78.1 Physical restraint status
CPT/HCPCS: 51702; 70450; 73200; 73221; 76881; 82271; 82570; 82805; 82962; 83605; 83735; 83930; 84100; 84132; 84145; 84300; 84540; 85007; 85014; 85018; 86850; 86900; 86901; 86920; 87040; 87070; 87081; 87086; 87106; 87205; 87324; 87449; 88304; 92610; 92950; 93005; 93306; 93970; 94002; 94003; 94640; 94660; 96361; 96365; 96368; 96375; 96376; 97162; 99291; 99292; G0480; G0481; J0171; J0282; J0295; J0330; J0461; J0610; J0637; J0696; J1160; J1265; J1630; J1644; J1815; J1956; J2250; J2270; J2370; J2405; J2543; J2704; J2765; J3010; J3370; J3475; J3480; J3490; J7030; J7040; J7050; J7060; P9016; P9046